=== PATIENT | female | born 1985 | race Caucasian/White ===

== ENCOUNTER → 2016-06-21 | Outpatient (CLI) | payer OTHER ==
[~2016-06-21] MED LIST: DOCU-94 PO; ONDA4TAB46 PO; PRENTAB26 PO; PSYL58.618 PO
[2016-06-21 11:14] LABS: HEMATOCRIT 31.6 % (37-47)
[2016-06-21 12:45] LABS: URINE APPEARANCE CLEAR (CLEAR); URINE BILIRUBIN NEG (NEG); URINE COLOR YELLOW; URINE EPITHELIAL CELL AUTO >30 /lpf (0-5); URINE NITRITE NEG (NEG); URINE PH 6.5 (4.5-7.5); URINE SPECIFIC GRAVITY 1.014 (1.000-1.030); UROBILINOGEN NEG (NEG)
[2016-06-21 12:54] LABS: GTGD 50 Grams
[2016-06-21 12:54] LABS: MANUAL MICROSCOPIC REQUIRED? NO; REVIEW REQ? YES
== END | disposition home or self-care (01) ==
LOC: C.LAB1850 09:58
PROVIDERS: ATTEND Obstetrics & Gynecology
DX: Z34.03 Encounter for supervision of normal first pregnancy, third trimester (principal)

== ENCOUNTER → 2016-08-22 | Outpatient (CLI) | payer OTHER | END | disposition home or self-care (01) | LOC: C.LABSPEC 11:17 | PROVIDERS: ATTEND Obstetrics & Gynecology | DX: Z34.03 Encounter for supervision of normal first pregnancy, third trimester (principal) ==

== ENCOUNTER 2016-08-30 12:12 | Inpatient (IN) | payer OTHER ==
[~2016-08-30] VITALS: Ht 177.8 cm; Wt 87.0 kg
[~2016-08-30 12:12] MED LIST changes: -PRENTAB26 PO
[2016-08-30 12:44] VITALS: Ht 177.8 cm; Wt 87.0 kg
[2016-08-30] MEDS ORDERED: PRENTAB26 PO (12:44)
[2016-08-30 13:06] LABS: HEMATOCRIT 33.1 % (37-47); MEAN CELL VOLUME 92.2 fL (80-100); MEAN CORPUSCULAR HEMOGLOBIN 31.5 pg (25-34); MEAN CORPUSCULAR HGB CONC 34.1 g/dl (32-36); MEAN PLATELET VOLUME 10.6 fL (7.4-10.4); PLATELET COUNT 224 K/uL (130-400); RED BLOOD COUNT 3.59 M/uL (4.2-5.4); WHITE BLOOD COUNT 11.03 K/uL (4.8-10.8)
[2016-08-30 13:33] LABS: BUN/CREATININE RATIO 12.8 (10-20); CALCIUM 8.9 mg/dl (8.5-10.1); CREATININE 0.58 mg/dl (0.60-1.20); POTASSIUM 3.9 mmol/L (3.5-5.1)
[2016-08-30 13:35] LABS: ALB/GLOB RATIO 0.7 (0.9-2)
[2016-08-30] MEDS ORDERED: LACTATED RINGER'S 1000ML 1,000 ML IV SCH (15:16)
[2016-08-30] MEDS ORDERED: LACTATED RINGER'S 1000ML 1,000 ML IV PRN (15:16)
[2016-08-30] MEDS: CALCIUM CARBONATE 500 MG CHEWABLE PO PRN (21:34)
[2016-08-30] MEDS ORDERED: LACTATED RINGER'S 1000ML 500 ML IV PRN (21:51)
[2016-08-30] MEDS ORDERED: OXYTOCIN 30 UNITS/500ML NSS IV PRN (22:00)
[2016-08-31] MEDS: CALCIUM CARBONATE 500 MG CHEWABLE PO PRN ×2 (01:29→06:01)
[2016-08-31] MEDS ORDERED: RANITIDINE HCL 150 MG TAB PO PRN (08:15)
[2016-08-31] MEDS ORDERED: EpHEDrine SULFATE INJ 50 MG/ML AMP ONE (08:27)
[2016-08-31] MEDS ORDERED: BUPIVACAINE 0.25% 30 ML VIAL ONE (08:27)
[2016-08-31] MEDS ORDERED: FENTANYL CITRATE INJ 50 MCG/1 ML 2 ML VIAL ONE (08:27)
[2016-08-31] MEDS ORDERED: FENTANYL 2MCG/ML ROPIV 1.25MG/ML 100ML BAG EPI ONE (08:28)
[2016-08-31] MEDS ORDERED: LACTATED RINGER'S 1000ML 500 ML IV PRN (09:34)
[2016-08-31] MEDS ORDERED: NALOXONE HCL INJ 1 MG in SODIUM CHLORIDE 0.9% 1000ML 1,000 ML IV PRN (09:34)
[2016-08-31] MEDS ORDERED: DiphenhydrAMINE HCL 50 MG/ML VIAL IV PRN (09:45)
[2016-08-31] MEDS ORDERED: EpHEDrine SULFATE INJ 50 MG/ML AMP IV PRN (09:45)
[2016-08-31] MEDS ORDERED: NALOXONE HCL INJ 0.4 MG/1 ML VIAL/CARP IV PRN (09:45)
[2016-08-31] MEDS ORDERED: NALBUPHINE HCL INJ 10 MG/ML AMP IV PRN (09:45)
[2016-08-31] MEDS ORDERED: FENTANYL 2MCG/ML ROPIV 1.25MG/ML 100ML BAG EPI PRN (09:45)
[2016-08-31] MEDS ORDERED: ONDANSETRON INJ 2 MG/ML 2 ML VIAL IV PRN (10:30)
[2016-08-31] MEDS ORDERED: DIPHTHERIA/TETANUS/PERTUSSIS 0.5 ML SYR/VIAL IM. ONE (12:15)
[2016-08-31] MEDS ORDERED: OXYCODONE/ACETAMINOPHEN 5-325 TAB PO PRN (12:15)
[2016-08-31] MEDS ORDERED: BENZOCAINE 20% AER SPR 82.5 GM CAN EXT PRN (12:15)
[2016-08-31] MEDS ORDERED: OXYTOCIN 30 UNITS/500ML NSS IV PRN (12:15)
[2016-08-31] MEDS ORDERED: SUPERCREAM 0.870 % 15GM JAR EXT PRN (12:15)
[2016-08-31] MEDS ORDERED: ACETAMINOPHEN/CODEINE 300/30MG TAB PO PRN (12:15)
[2016-08-31] MEDS ORDERED: HYDROCORTISONE ACETATE 25 MG SUPP PR PRN (12:15)
[2016-08-31] MEDS ORDERED: LANOLIN OINT EXT PRN ×2 (12:15)
[2016-08-31] MEDS ORDERED: ACETAMINOPHEN 325 MG TAB PO PRN (12:15)
--- NOTE | 2016-08-31 14:23 | Anesthesia Procedure Note ---
Anesthesia Epidural Removal Nt Date & Time August 31, 2016 at 14:23 Notes Mental Status: alert / awake / arousable, participated in evaluation Nausea / Vomiting: adequately controlled Pain: adequately controlled Airway Patency, RR, SpO2: stable & adequate BP & HR: stable & adequate Hydration State: stable & adequate Neuraxial Anesthesia: was administered Anesthetic Complications: no major complications apparent, pt satisfied with anesthetic care Epidural: removed without complications, with tip intact
[2016-08-31 15:20] VITALS: BP 129/86; PULSE 92; TEMP 37.1
[2016-08-31] MEDS: IBUPROFEN 600 MG TAB PO PRN ×3 (15:31→23:29)
--- NOTE | 2016-08-31 15:43 | DELIVERY SUMMARY ---
DATE OF OPERATION: 08/31/2016 FINDINGS: Viable male with Apgars of 8 and 9. Baby delivered spontaneously over a midline second degree laceration, nuchal cord x1 reduced on the perineum. Cord gases, cord blood samples obtained. Lacerations repaired with 4-0 and 2-0 Vicryl. ESTIMATED BLOOD LOSS: 300 mL. LABOR NOTE: The patient is a 30-year-old 1, para 0 with an EDC of 15 September presented to labor and delivery at 37 and 5/7 weeks gestational age for evaluation of elevated blood pressure. The patient had been seen in the office on 30 August for scheduled OB visit and her blood pressure was 142/92, she had no protein. Because of the elevated blood pressure, the patient was sent to labor and delivery for evaluation. Prior to the elevated blood pressure, the patient has had a benign course, blood type is B+, antibody negative, Rubella immune, hepatitis B negative. She had normal 1 hour Glucola x2 and a negative third trimester beta-strep culture. The patient was observed on labor and delivery with consistent elevated blood pressures. PIH labs were drawn, which were within normal limits. The diagnosis though of gestational hypertension at term was made and because of that induction was indicated. The patient initially had a Cabrera catheter inserted into the cervix for cervical ripening. She then had Pitocin initiated. When the Cabrera catheter was removed the patient was 3 cm dilated, 50% effaced, and -2 station. She had an artificial rupture of the membranes for a clear fluid. The patient's blood pressure remained mildly elevated. After rupture of the membranes the patient became very uncomfortable, anesthesia was consulted and an epidural was placed. The patient went on to full dilatation and began her second stage. She pushed for approximately 1 hour, during the end of the second stage marked bradycardia was noted, borderline category 3 tracing. Discussion with the patient and her about a vacuum extraction, however, the patient was able to deliver spontaneously over a midline second degree laceration. Nuchal cord x1 was reduced on the perineum and the baby was delivered with a good vigorous cry. Cord was clamped and cut. Cord gases and cord blood samples obtained. Placenta was delivered spontaneously. Inspection of the perineum showed a midline second-degree laceration, this was repaired with 4-0 and 2-0 Vicryl in a routine fashion. Estimated blood loss was 300 mL. Sponge and needle counts were correct. I attest to the content of the Intraoperative Record and any orders documented therein. Any exceptio ns are noted below.
[2016-08-31] MEDS: PRENATAL VITAMIN TAB PO SCH (16:20)
[2016-08-31 19:10] VITALS: BP 118/74; PULSE 76; TEMP 37.1
[2016-08-31] MEDS: DOCUSATE SODIUM 100 MG CAP PO SCH (19:17)
[2016-08-31 23:30] VITALS: BP 126/86; PULSE 74; TEMP 36.8
[2016-09-01 04:00] VITALS: BP 124/82; PULSE 70; TEMP 36.7
--- NOTE | 2016-09-01 07:02 | Progress Note ---
Subjective September 01, 2016. Subjective conversation w/ patient, physical exam Ambulation: ambulating normally Feeding Type: Breast Feeding Objective Vital Signs Date Time Temp Pulse Resp B/P Pulse Ox O2 Delivery O2 Flow Rate FiO2 09/01/16 04:00 36.7 70 18 124/82 Room Air 08/31/16 23:30 Room Air 08/31/16 23:30 36.8 74 18 126/86 Room Air 08/31/16 19:10 37.1 76 18 118/74 Room Air 08/31/16 15:20 Room Air 08/31/16 15:20 37.1 92 18 129/86 Room Air Physical Exam General Appearance: WELL-APPEARING, NO APPARENT DISTRESS Fundus: Firm, Non-Tender Extremities: no calf tenderness Laboratory Results Last 24 Hours Test 09/01/16 06:11 Hemoglobin 10.4 g/dL Hematocrit 31.0 % Assessment and Plan Problem List Medical Problems: (1) Nausea, vomiting, and diarrhea Status: Acute Post- Day#: 1 Continue Routine Care: - doing well - BP stable - routine care
[2016-09-01] MEDS: IBUPROFEN 600 MG TAB PO PRN ×4 (07:21→23:52)
[2016-09-01 07:31] VITALS: BP 116/64; PULSE 82; TEMP 36.9
[2016-09-01] MEDS ORDERED: PRENATAL VITAMIN TAB PO SCH (08:00)
[2016-09-01] MEDS: PRENATAL VITAMIN TAB PO SCH (08:40)
[2016-09-01] MEDS: DOCUSATE SODIUM 100 MG CAP PO SCH ×2 (08:40→20:37)
[2016-09-01] MEDS: FERROUS SULFATE 325 MG TAB PO SCH (08:40)
[2016-09-01 12:10] VITALS: BP 130/95; PULSE 65; TEMP 36.8
[2016-09-01 15:35] VITALS: BP 141/90; PULSE 80; TEMP 36.9; O2SAT 99
[2016-09-01] MEDS ORDERED: BISACODYL 5 MG TABEC PO SCH (20:00)
[2016-09-01 23:35] VITALS: BP 139/73; PULSE 64; TEMP 37
--- NOTE | 2016-09-02 07:01 | Progress Note ---
Subjective September 02, 2016. Subjective conversation w/ patient, physical exam, lab review Ambulation: ambulating normally Voiding: no voiding problems Passing Gas: Yes Diet Tolerance: Regular Diet Lochia: Small Feeding Type: Breast Feeding Pain: improves with med Comment: Patient was seen at the bedside. No acute event overnight. Review of Systems Constitutional: No fever Respiratory: No cough, No shortness of breath Cardiac: No chest pain Breast: No breast lump Abdomen: No nausea, No pain, No vomiting Female : No dysuria, No urinary frequency Denies headache Objective Vital Signs Date Time Temp Pulse Resp B/P Pulse Ox O2 Delivery O2 Flow Rate FiO2 09/01/16 23:35 Room Air 09/01/16 23:35 37.0 64 20 139/73 Room Air 09/01/16 15:35 36.9 80 80 141/90 99 Room Air 09/01/16 15:35 Room Air 09/01/16 12:10 36.8 65 18 130/95 Room Air 09/01/16 08:20 Room Air 09/01/16 07:31 36.9 82 18 116/64 Room Air Physical Exam General Appearance: WELL-APPEARING, WD/WN, NO APPARENT DISTRESS Respiratory/Chest: chest non-tender, lungs clear, normal breath sounds, no respiratory distress Cardiovascular: regular rate, rhythm Abdomen: normal bowel sounds, non tender, soft Fundus: Firm, Relation to Umbilicus (1-2cm below U) Extremities: non-tender, no pedal edema, no calf tenderness Medications Current Inpatient Medications Medications (Trade) Dose Ordered Sig/Valery Route Start Time Stop Time Status Last Admin Dose Admin Prenat Multivit/ [place]/Iron/Folic Ac ( Vitamin Tab) 1 tab DAILY PO 08/31/16 08:00 09/30/16 07:59 09/01/16 08:40 1 TAB Calcium Carbonate (Tums Chew Tab) 500 mg Q4 PRN PO 08/30/16 21:15 09/29/16 21:14 08/31/16 06:01 500 MG Ranitidine HCl (zANTac TAB) 150 mg BID PRN PO 08/31/16 08:15 09/30/16 08:14 08/31/16 09:10 150 MG Oxytocin (Pitocin IV) 30 units UD PRN IV 08/31/16 12:15 09/30/16 12:14 Benzocaine (Dermoplast Aero Spr) 1 appln PRN PRN EXT 08/31/16 12:15 09/30/16 12:14 08/31/16 15:30 82.5 APPLN Cocaine HCl (Supercream 0.870% Cr) BID PRN EXT 08/31/16 12:15 09/14/16 12:14 Hydrocortisone Acetate (Anusol Hc Supp) 25 mg BID PRN MT 08/31/16 12:15 09/30/16 12:14 Lanolin (Lanolin Oint) PRN PRN EXT 08/31/16 12:15 09/30/16 12:14 Ibuprofen (Motrin Tab) 600 mg Q4H PRN PO 08/31/16 12:15 09/30/16 12:14 09/01/16 23:52 600 MG Acetaminophen (Tylenol Tab) 650 mg Q6H PRN PO 08/31/16 12:15 09/30/16 12:14 Acetaminophen/ Codeine Phosphate (Tylenol w/ Codeine #3 Tab) 1 tab Q4H PRN PO 08/31/16 12:15 09/30/16 12:14 08/31/16 23:28 1 TAB Docusate Sodium (coLACE CAP) 100 mg BID PO 08/31/16 20:00 09/30/16 19:59 09/01/16 20:37 100 MG Ferrous Sulfate (Feosol Tab) 325 mg DAILY PO 09/01/16 08:00 10/01/16 07:59 09/01/16 08:40 325 MG Assessment and Plan Problem List Medical Problems: (1) Nausea, vomiting, and diarrhea Status: Acute Post- Day#: 2 Continue Routine Care: A/P: This is a 30 y/o female, , s/p normal vaginal delivery. She is ambulating and clinically stable to discharge. - Vital signs are reviewed and WNL (Tmax 37 ), last BP was 139/73 - Last Hgb 10.4 - Blood type B+, GBS neg, Rubella Immune - No signs of depression. - Routine care - Discussed resting, feeding, pain control, mastitis, control, follow up in 6 weeks and reasons to call sooner, if necessary. - Continue with pain medication as needed, and continue vitamins. - Encourage breast feeding and educate about breast feeding - Patient understands and keen for home. - Plan to discharge home Resident Physician Supervision Note: I interviewed and examined the patient. Discussed with Dr. Johnston and agree with findings and plan as documented in the note. Any exceptions or clarifications are listed here: [None] Documented By: Luis Alfredo Jung
--- NOTE | 2016-09-02 07:03 | Discharge Instructions ---
Discharge Instructions Date of Service September 02, 2016. Admission Reason for Admission: Blood Pressure Check Discharge Discharge Diagnosis / Problem: s/p vaginal delivery Discharge Goals Goal(s): Routine recovery after delivery Medications Continue Dispensed Medications: supercream, dermaplast, tucks, lansinoh Activity Recommendations Activity Limitations: as noted below . Instructions / Follow-Up Instructions / Follow-Up ACTIVITY RECOMMENDATIONS: * Gradual return to full activity over the next 2-3 weeks. * No lifting - nothing heavier than baby over the next 2-3 weeks. * Do not engage in vigorous exercise, sexual activity or sports until cleared by your physician. * Do not drive or operate any motorized equipment until cleared by your physician. * You may shower/bathe daily. MEDICATIONS: For discomfort or pain, you may use Acetaminophen (Tylenol), Ibuprofen (Advil), or Naproxen (Aleve) following the package directions. For constipation you may use Colace following the package directions. BREAST CARE: If you are not breast feeding: * Wear a supportive bra 24 hours a day for one to two weeks. * Avoid stimulating your breasts and nipples as much as possible during the first few weeks after delivery. * When taking a shower, have the warm water hit your back, not breasts. * When your breasts feel full, apply ice packs. Usually three to four times a day helps ease the discomfort. * Take a mild pain medication (Tylenol / Motrin) when you are uncomfortable. If breast feeding: * Use breast milk to lubricate nipples. Lansinoh cream may be used for sore nipples. You do not need to remove cream prior to breast feeding. If using a different brand of cream, check the label for directions regarding removal of cream prior to nursing. * Wear a supportive bra. * If having problems with breasts or breast feeding, call a clothing consultant or your health care provider. EPISIOTOMY CARE: After delivery, if you have an episiotomy (stitches), the following steps will ease discomfort and aid healing. * For the first 24 hours after delivery, place ice packs next to your episiotomy to help reduce swelling. * After the first 24 hour-period, sitz baths, either portable or in the tub, are suggested. A shower with a shower arm sprayed over the episiotomy may be comforting. * Elizabeth care should be done after each voiding and bowel movement. Squirt warm water from a plastic bottle over the perineum (region of the body between the anus and urinary opening) and pat dry. * Use Dermoplast to ease discomfort. Shake container. [place] directly over the episiotomy. Place a Tucks on a clean sanitary pad next to your episiotomy. SPECIAL CARE INSTRUCTIONS: When you are discharged from the hospital, it is important for you to follow the instructions listed below: * During the first week at home, you should be able to care for yourself and your baby. In addition, the usual light household activities are encouraged. * Limit your activities to the way you feel. Do not try to clean the house or move furniture. Be sensible. * If you actively engage in sports and have done so up until the time of your delivery, you may resume these activities as soon as you feel able. This may take up to one month or even longer. Use good judgment. * Continue to take your vitamins for at least six weeks after the of your baby. * Your diet need not be limited unless you were on a special diet before your delivery. Breast-feeding mothers need around 2500 calories per day and at least 64-80 ounces of fluid per day (8 to 10 glasses). * You should eat foods from the four major food groups. Crash diets or fad diets are to be avoided. Eating lean meats, fresh fruits and vegetables, low-fat dairy products, high fiber foods and a regular exercise program, will help you get back to your pre- weight without putting your health at risk. * Constipation is sometimes a problem after delivery. Take a mild laxative as needed. If breast feeding, Milk of Magnesia is acceptable to use. You may use a suppository or Fleets enema if no episiotomy. * A daily shower or tub bath is suggested. Be sure to thoroughly and gently dry the perineum. * A bloody vaginal discharge will usually continue until around four weeks post . A small amount of bleeding may continue for as long as six weeks. Vaginal discharge changes from the bright red bleeding after delivery to pink then brownish and finally yellowish-pink before becoming white and disappearing. * Bleeding may increase with activity. Your first period may come in 4-8 weeks. If you are breast feeding, your period may be delayed even longer. * [place] (sex) can begin whenever both you and your partner feel comfortable and do not have any form of genital infection. It is recommended that you wait at least six weeks for internal and external healing to occur. If you have questions, please talk to your health care practitioner. A condom should be used to prevent infection and . * Foreplay, gentle intercourse and lubrication is very important the first several times to prevent pain. A water-based lubricant such as K-Y jelly or Astroglide may be used. * If you have RH negative blood and your baby is RH positive, you will receive RHOGAM by injection prior to discharge. The nurse will give you a card to keep with you that has the date and place that you received RHOGAM after delivery. * During your care, you had a Rubella screen done to check for the presence of rubella antibodies in your blood. If your test was negative, you will receive a Rubella vaccine prior to discharge. This vaccine may cause a fever, soreness at the injection site and flu-like symptoms. If these symptoms persist, notify your health care practitioner. is not advised for one month after a Rubella vaccine. * Verbalizes understanding of car seat law as reviewed with patient nursing. * Car Seat hand-out given and reviewed with patient by nursing. * Shaken baby information reviewed with patient by nursing. Call you doctor if: * Heavy bleeding (saturating several pads an hour) or passing clots the size of your fist. * A fever >101 degrees F (38.3 degrees C) on two occasions four hours apart and /or chills. * Unusual pain in the pelvic or vaginal areas. * "Baby Blues" lasting longer than two weeks. If you have any questions or concerns, call your health care practitioner at . FOLLOW UP VISIT: * Please call the office at to schedule a 6 week examination. It is important you keep this appointment. It is important for you to make arrangements for either yearly or twice yearly check-ups thereafter. Current Hospital Diet Patient's current hospital diet: Regular OB Diet Discharge Diet Recommended Diet: Regular Diet Pending Studies Studies pending at discharge: no Medical Emergencies . Who to Call and When: Medical Emergencies: If at any time you feel your situation is an emergency, please call 911 immediately. . Non-Emergent Contact Non-Emergency issues call your: P[employer]ator Call Non-Emergent contact if: you have a fever, temperature is above 101 . . "Provider Documentation" section prepared by Estephania Johnston. . VTE Core Measure Inpt VTE Proph given/why not?: Treatment not indicated
[2016-09-02] MEDS: DOCUSATE SODIUM 100 MG CAP PO SCH (08:43)
[2016-09-02] MEDS: FERROUS SULFATE 325 MG TAB PO SCH (08:43)
[2016-09-02] MEDS: IBUPROFEN 600 MG TAB PO PRN (08:43)
[2016-09-02] MEDS: PRENATAL VITAMIN TAB PO SCH (08:44)
[2016-09-02 08:45] VITALS: BP 134/81; PULSE 75; TEMP 36.7; O2SAT 99
== END 2016-09-02 11:30 | disposition home or self-care (01) | DRG 775 ==
LOC: C.OPB 12:12 → C.LD 12:22 → C.OPB 15:19 → C.LD 15:19 → C.OBG 08-31 14:55 → EDSTATUS 09-15 12:09
PROVIDERS: ADMIT Obstetrics & Gynecology; ATTEND Obstetrics & Gynecology
PROC: 0U7C7ZZ Dilation of Cervix, Via Natural or Artificial Opening (ICD-10-PCS; principal; 2016-08-31)
PROC: 3E033VJ Introduction of Other Hormone into Peripheral Vein, Percutaneous Approach (ICD-10-PCS; principal; 2016-08-31)
PROC: 10E0XZZ Delivery of Products of Conception, External Approach (ICD-10-PCS; principal; 2016-08-31)
DX: O13.4 Gestational [pregnancy-induced] hypertension without significant proteinuria, complicating childbirth (principal); Q79.6 Ehlers-Danlos syndromes; O99.89 Other specified diseases and conditions complicating pregnancy, childbirth and the puerperium; O70.1 Second degree perineal laceration during delivery; O69.81X0 Labor and delivery complicated by cord around neck, without compression, not applicable or unspecified; O76 Abnormality in fetal heart rate and rhythm complicating labor and delivery; Z37.0 Single live birth; Z3A.37 37 weeks gestation of pregnancy

== ENCOUNTER → 2016-12-04 | Outpatient (CLI) | payer OTHER ==
[~2016-12-04] MED LIST changes: -DOCU-94 PO; -ONDA4TAB46 PO; +PRENTAB26 PO; -PSYL58.618 PO
[2016-12-06 01:22] LABS: CHLAMYDIA TRACH RNA*** NOT DETECTED (NOT DETECTED); GC (NEIS GONORRHOEAE)RNA** NOT DETECTED (NOT DETECTED)
== END | disposition home or self-care (01) ==
LOC: C.LABSPEC 12:33
PROVIDERS: ATTEND Physician Assistant
DX: Z30.430 Encounter for insertion of intrauterine contraceptive device (principal)

== ENCOUNTER → 2017-05-16 | Outpatient (CLI) | payer OTHER | END | disposition home or self-care (01) | LOC: C.LABSPEC 17:59 | PROVIDERS: ATTEND Family Medicine Adult Medicine | DX: N76.0 Acute vaginitis (principal) ==

== ENCOUNTER → 2017-07-22 | Outpatient (CLI) | payer OTHER | END | disposition home or self-care (01) | LOC: C.LABBC 09:10 | PROVIDERS: ATTEND Family Medicine Adult Medicine | DX: R63.4 Abnormal weight loss (principal) ==

== ENCOUNTER → 2017-11-17 | Outpatient (CLI) | payer OTHER | END | disposition home or self-care (01) | LOC: C.LABSPEC 16:40 | PROVIDERS: ATTEND Obstetrics & Gynecology | DX: Z34.81 Encounter for supervision of other normal pregnancy, first trimester (principal); Z3A.00 Weeks of gestation of pregnancy not specified ==

== ENCOUNTER → 2017-12-02 | Outpatient (CLI) | payer OTHER ==
[~2017-12-02] MED LIST changes: +DOXY25TA8 PO; +METR500T PO; +ONDA4TAB46 PO
[2017-12-02 13:15] LABS: BASO % 0.1 %; BASO ABS # 0.01 K/uL (0-0.2); EOS ABS # 0.07 K/uL (0-0.5); HEMATOCRIT 35.4 % (37-47); HEMOGLOBIN 12.4 g/dL (12.0-16.0); IG# 0.01 K/uL (0.00-0.02); LYMPH % 19.1 %; LYMPH ABS # 1.28 K/uL (1.2-3.4); MEAN CELL VOLUME 87.2 fL (80-100); MEAN CORPUSCULAR HEMOGLOBIN 30.5 pg (25-34); MEAN PLATELET VOLUME 11.2 fL (7.4-10.4); MONO % 6.6 %; MONO ABS # 0.44 K/uL (0.11-0.59); NEUT % 73.1 %; NEUT ABS # 4.89 K/uL (1.4-6.5); PLATELET COUNT 206 K/uL (130-400); RED CELL DISTRIBUTION WIDTH CV 11.9 % (11.5-14.5); RED CELL DISTRIBUTION WIDTH SD 38.1 fL (36.4-46.3)
== END | disposition home or self-care (01) ==
LOC: C.LAB1850 12:11
PROVIDERS: ATTEND Obstetrics & Gynecology
DX: Z01.818 Encounter for other preprocedural examination (principal)

== ENCOUNTER → 2017-12-03 | Day surgery (SDC) | payer OTHER ==
[~2017-12-03] VITALS: Ht 175.3 cm; Wt 61.4 kg
[~2017-12-03] MED LIST changes: +ATROPINE SULFATE 0.1 MG/ML 5ML SYR IV PRN; +DEXAMETHASONE SOD INJ 4 MG/ML VIAL ONE; +DOXYCYCLINE HYCLATE 100 MG CAP ONE; +DOXYCYCLINE HYCLATE 100 MG CAP PO SCH; +EpHEDrine SULFATE INJ 50 MG/ML AMP IV PRN; +FENTANYL CITRATE INJ 50 MCG/1 ML 2 ML VIAL IV PRN; +FENTANYL CITRATE INJ 50 MCG/1 ML 2 ML VIAL ONE; +KETOROLAC TROMETHAMINE 30 MG/ML VIAL IV. PRN; +KETOROLAC TROMETHAMINE 30 MG/ML VIAL ONE; +LACTATED RINGER'S 1000ML 1,000 ML IV SCH; +LIDOCAINE HCL 2% 2 ML VIAL (20MG/ML) ONE; +METHYLERGONOVINE MALEATE 0.2 MG/ML AMP ONE; +MIDAZOLAM HCL 1 MG/ML 2ML VIAL ONE; +ONDANSETRON INJ 2 MG/ML 2 ML VIAL IV PRN; +ONDANSETRON INJ 2 MG/ML 2 ML VIAL ONE; +OXYCODONE/ACETAMINOPHEN 5-325 TAB PO PRN; +PROMETHAZINE HCL INJ 25 MG in SODIUM CHLORIDE 0.9% 50ML 50 ML IV PRN; +PROPOFOL IV EMULSION 10 MG/ML 20 ML VIAL ONE; +SODIUM CHLORIDE 0.9% 1000ML 1,000 ML IV SCH
[2017-12-03 06:23] VITALS: BP 123/85; PULSE 82; TEMP 37.1; O2SAT 100; Ht 175.3 cm; Wt 61.4 kg
--- NOTE | 2017-12-03 07:02 | History & Physical Bridge Note ---
H&P Re-Evaluation Bridge Note: I have examined the patient, reviewed the History & Physical and in the interval since the performance of the History & Physical I have noted the following changes of clinical significance: No changes noted
--- NOTE | 2017-12-03 07:57 | [facility] Post Operative Brief Note ---
Immediate Operative Summary Operative Date Dec 03, 2017. Pre-Operative Diagnosis missed Post-Operative Diagnosis same Procedure(s) Performed suction D&E Surgeon Celestine Reddy DO Mapping Analyst Surgeon(s) none Estimated Blood Loss 25ml Findings Consistent with Post-Op Diagnosis No POC seen on ultrasound at end of procedure Specimens products of conception Drains None bladder drained prior to procedure 25cc Anesthesia Type General Complication(s) none Disposition Accompanied Pt To Recover: no Disposition: Recovery Room / PACU
--- NOTE | 2017-12-03 07:58 | Discharge Instructions ---
Discharge Instructions Date of Service Dec 03, 2017. Visit Reason for Visit: Missed Discharge Discharge Diagnosis / Problem: same Discharge Goals Goal(s): Therapeutic intervention Activity Recommendations Activity Limitations: per Instructions/Follow-up section Anesthesia . Post Anesthesia Instructions: If you have had General Anesthesia or IV Sedation: * Do not drive today. * Resume driving when surgeon permits. * Do not make important decisions or sign legal documents today. * Call surgeon for: 1. Temperature elevations greater than 101 degrees F. 2. Uncontrollable pain. 3. Excessive bleeding. 4. Persistent nausea and vomiting. 5. Medication intolerance (nausea, vomiting or rash). * For nausea and vomiting use only clear liquids such as: tea, soda, bouillon until nausea subsides, then gradually increase diet as tolerated. * If you have any concerns or questions, call your surgeon's office. If physician is unavailable and it is an emergency, call 911 or go to the nearest emergency room. . Instructions / Follow-Up Instructions / Follow-Up ACTIVITY RECOMMENDATIONS: * Avoid tampons, douching, hot tubs, pools, and intercourse until bleeding has stopped. * May shower as usual. * No strenuous activity for 24-48 hours. After 24-48 hours, you may do anything you feel like doing (driving and sports are okay). SPECIAL CARE INSTRUCTIONS: Special Diet: * Mild nausea may occur in the immediate post-operative period. * Take clear liquids such as tea, cola or bouillon until all nausea has subsided; you may then resume your normal diet. Special Care: * Light bleeding and vaginal spotting can last from a few days to 3-4 weeks. Call your doctor if bleeding becomes heavier than the heaviest part of your period. * Check your temperature twice a day for one week. If it goes above 100.4 degrees Fahrenheit (38.0 Celsius), notify your doctor. * Call your doctor's office for an appointment for 6 weeks after your surgery. FOLLOW-UP VISIT: Call your doctor's office for an appointment for 6 weeks after your surgery. Diet Recommendations Recommended Home Diet: resume previous diet Procedures Procedures Performed: suction D&E Pending Studies Studies pending at discharge: yes List of pending studies: pathology Medical Emergencies . Who to Call and When: Medical Emergencies: If at any time you feel your situation is an emergency, please call 911 immediately. . Non-Emergent Contact Non-Emergency issues call your: Primary Care Provider, Visual Specialist . . "Provider Documentation" section prepared by Angeline Reddy. .
--- NOTE | 2017-12-03 08:17 | DIAGNOSTIC IMAGING REPORT ---
PELVIC ULTRASOUND GUIDANCE INTRAOPERATIVE CLINICAL HISTORY: MISSED COMPARISON STUDY: Outside hospital ultrasound 11/25/2017. FINDINGS: Transabdominal scanning of the pelvis demonstrates an intrauterine gestational sac. No pole is identified on this study. Post procedure imaging demonstrates evacuation of the gestational sac. Heterogeneous endometrium persists. IMPRESSION: Ultrasound guidance provided for dilatation and evacuation. Electronically signed by: Donald Bauer M.D. 12/03/2017 8:16 AM Dictated Date/Time: 12/03/2017 8:15 AM
--- NOTE | 2017-12-03 08:20 | Anesthesiology Progress Note ---
Anesthesia Post Op Note Date & Time Dec 03, 2017 at 08:20 Vital Signs Pain Intensity: 0 Vital Signs Past 12 Hours Date Time Temp Pulse Resp B/P (MAP) Pulse Ox O2 Delivery O2 Flow Rate FiO2 12/03/17 06:23 37.1 82 16 123/85 (98) 100 Room Air Notes Mental Status: alert / awake / arousable, participated in evaluation Pt Amnestic to Procedure: Yes Nausea / Vomiting: adequately controlled Pain: adequately controlled Airway Patency, RR, SpO2: stable & adequate BP & HR: stable & adequate Hydration State: stable & adequate Anesthetic Complications: no major complications apparent
--- NOTE | 2017-12-03 08:58 | [facility] Operative Report ---
Operative Report Operative Date Dec 03, 2017. Pre-Operative Diagnosis missed Post-Operative Diagnosis same Procedure(s) Performed suction D&E Surgeon Celestine Reddy DO Foxpro Developer Surgeon(s) none Estimated Blood Loss 25ml Findings No POC seen on ultrasound at end of procedure Specimens products of conception Drains None bladder drained prior to procedure 25cc Anesthesia Type General Complication(s) none Disposition no Recovery Room / PACU Indications 32-year-old 001 at 9 weeks by last menstrual period, had missed diagnosed in the office. Last week, gestational sac measured 6 weeks 2 days with heart rate 99. Yesterday in the office, gestational sac measured 6 weeks 2 days with echogenic debris, no heart rate. The patient elected to undergo surgical dilation and evacuation. Description of Procedure The patient was seen in the preoperative holding area risks benefits and alternatives to surgery reviewed. We discussed informed consent in the office. She signed informed consent and all questions were answered. She elected to proceed with surgery. The patient was offered genetic testing of the products of conception, she declined this. She received p.o. doxycycline preoperatively, and will receive a second dose postoperatively per a [facility] antibiotic guidelines. She has received a prescription for Flagyl to take over the next 5 days. Patient was taken to the operating room, where general anesthesia was administered. She was prepared and draped in the usual sterile fashion with feet in yellowfin stirrups in the dorsal lithotomy position. The bladder was drained, a weighted speculum was placed in the vagina, cervix was visualized, anterior lip was grasped with a single-tooth tenaculum. The cervix was gently dilated to admit an 8 mm curved suction curette. Under direct ultrasound guidance, the uterus was gently curettaged, all products of conception were sent to pathology for evaluation. At the conclusion of the curettage, there was a small amount of blood in the uterine cavity, but no obvious products of conception. The patient was given 1 dose of Methergine by anesthesia. Excellent hemostasis was observed. All instruments were removed from the vagina. Sponge and instrument counts are correct 2 at the conclusion of the case, the patient was taken to recovery area in stable and good condition. I attest to the content of the Intraoperative Record and any orders documented therein. Any exceptions are noted below.
[2017-12-03 09:09] VITALS: BP 111/60; PULSE 71; TEMP 36.9; O2SAT 100
[2017-12-03 09:39] VITALS: BP 112/62; PULSE 70; TEMP 36.9; O2SAT 100
== END | disposition home or self-care (01) ==
LOC: C.ACU 06:00
PROVIDERS: ATTEND Obstetrics & Gynecology
DX: O02.1 Missed abortion (principal); Q79.6 Ehlers-Danlos syndromes; Z87.891 Personal history of nicotine dependence

== ENCOUNTER 2018-10-19 13:11 | Observation (INO) ==
[2018-10-19] MEDS ORDERED: LACTATED RINGER'S 1,000 ML IV PRN (13:51)
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
[2018-10-19 14:10] LABS: Basophils # (auto) 0.01 K/uL (0-0.2); Basophils % (auto) 0.1 %; Eosinophils # (auto) 0.17 K/uL (0-0.5); Eosinophils % (auto) 2.1 %; Hematocrit (blood only) 30.9 % (37-47); Hemoglobin 10.3 g/dL (12.0-16.0); Immature Granulocytes # (auto) 0.03 K/uL (0.00-0.02); Immature Granulocytes % (auto) 0.4 %; Lymphocytes # (auto) 1.13 K/uL (1.2-3.4); Lymphocytes % (auto) 14.3 %; Mean Corpuscular Hgb Conc 33.3 g/dL (32-36); Mean Corpuscular Volume 87.5 fL (80-100); Monocytes # (auto) 0.52 K/uL (0.11-0.59); Monocytes % (auto) 6.6 %; Neutrophils # (auto) 6.05 K/uL (1.4-6.5); Neutrophils % (auto) 76.5 %; Platelet Count 228 K/uL (130-400); RDW Coefficient of Variation 13.3 % (11.5-14.5); RDW Standard Deviation 42.7 fL (36.4-46.3); Red Blood Count 3.53 M/uL (4.2-5.4); White Blood Count 7.91 K/uL (4.8-10.8)
--- NOTE | 2018-10-20 07:38 | Obstetrical Progress Note ---
Date of Service October 20, 2018 Subjective Patient feels like ctx have significantly slowed since yesterday. They were Q 2-3 min yesterday, but overnight they slowed down. Now only feeling ctx occasionally. + movement, no vaginal bleeding, no leaking of fluid. Vitals stable. FHT Category 1 and reactive. [place] with irregular, occasional ctx. Cervix: unchanged since yesterday. No abdominal tenderness. Discussed with [place] that she does not appear to be in labor at this point, given that her contractions have spaced and her cervix is unchanged. No bleeding or abdominal tenderness and Cat1 FHT - abruption is not likely. I discussed with her that I recommend the full 24h of monitoring after the acci dent - and she will be able to be discharged at 12:15 today as long as FHT and her symptoms remain stable. She is agreeable to this. Reviewed discharge instructions, she will followup with me in office as scheduled on Friday. Results & Data Vital Signs (Past 12 Hours) Vital Signs Temp Pulse Resp BP 10/20/18 07:11 74 122/77 10/20/18 07:10 36.9 C 20 10/20/18 04:47 72 112/75 10/20/18 01:32 37.0 C 67 18 114/65 10/19/18 22:10 37.9 C H 93 H 18 122/83
[2018-10-20] MEDS ORDERED: CALCIUM CARBONATE 500 MG CHEWABLE TAB PO PRN (09:42)
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
== END 2018-10-20 12:50 | disposition home or self-care (01) ==
LOC: 4S1 13:11 → OPB 13:11 → 4S1 13:17
DX: Q79.6 Ehlers-Danlos syndromes; Z3A.37 37 weeks gestation of pregnancy; F17.200 Nicotine dependence, unspecified, uncomplicated; V43.52XA Car driver injured in collision with other type car in traffic accident, initial encounter; O13.3 Gestational [pregnancy-induced] hypertension without significant proteinuria, third trimester

== ENCOUNTER 2018-10-23 11:59 | Inpatient (IN) ==
[2018-10-23] MEDS ORDERED: OXYTOCIN 30 UNITS/500 ML BAG IV PRN ×3 (12:45→18:46)
--- NOTE | 2018-10-23 12:59 | History & Physical Report ---
Date of Service October 23, 2018 Assessment & Plan (1) Elevated blood pressure affecting in third trimester, antepartum: Patient with HTN range pressures here, and severe range pressures in office. Although not 4hr apart yet to make gestational hypertensive diagnosis official, given her severe range pressures and history of gHTN in prior , as well as currently ripe cervix with uncomfortable contractions, will go ahead and move towards delivery. Patient has reassuring status. Getting IV inserted now, then will re-examine and likely AROM. Pitocin ordered. GBS neg. Present on Admission?: Yes History of Present Illness Primary Care Provider: Karie Bellamy MD @ 38wk sent from office for severe range HTN and trace protein, both new. Patient denies [place], RUQ pain or vis changes. Allergies Allergy/AdvReac Type Severity Reaction Status Date / Time NEOPRENE Allergy Unknown CONTACT Uncoded 10/19/18 16:32 DERMATITIS Home Medications Home Medications Medication Instructions Recorded Confirmed Type vit no.[id number] 1 tab PO PM 10/19/18 10/23/18 History [ Vitamin] ranitidine HCl 150 mg PO BID 10/19/18 10/23/18 History calcium carbonate [Tums] 200 mg PO TID 10/23/18 10/23/18 History Patient History Medical History Gestational HTN (Acute) Cari-Danlos syndrome (Chronic) Clostridium difficile infection times 2; hospitalized once Migraines [place] teeth removed Surgical History History of dilatation and curettage Hx of LASIK Hx of tonsillectomy Family History Other Diabetes Hypertension Thyroid disease Social History Preferred Language: Italian Communication Ability: Effective Bi Consultant Required: No Beliefs That Will Affect Care: None marital status: Current Living Situation: Spouse Other Information That Helps Us Care for You: No Feels Safe at Home: Yes Safety Concerns: Feels Safe At This Time Smoking Status: Former smoker Hx Alcohol Use: No Hx Substance Use: No Physical Exam Constitutional: WD/WN, vitals as above Respiratory: normal respiratory effort; no respiratory distress Cardiovascular: Rate/Rhythm: regular rate and regular rhythm Extremities: no edema Gastrointestinal (Abdomen): Gravid, NT Psychiatric: A+Ox3, euthymic affect Genitourinary: Office exam 4cm/80%/-2 per Barry Results & Data Vital Signs (Past 12 Hours) Vital Signs Temp Pulse Resp BP 10/23/18 12:50 76 137/90 10/23/18 12:36 86 131/85 10/23/18 12:20 37.1 C 80 20 136/87 10/23/18 12:08 37.1 C 80 20 136/87 Monitoring External Monitor Cat 1 [place] Q5 irregular
[2018-10-23 13:05] LABS: Hematocrit (blood only) 31.4 % (37-47); Hemoglobin 10.7 g/dL (12.0-16.0); Mean Corpuscular Volume 87.7 fL (80-100); Platelet Count 227 K/uL (130-400); Red Blood Count 3.58 M/uL (4.2-5.4); White Blood Count 7.13 K/uL (4.8-10.8)
[2018-10-23 13:11] LABS: Mean Corpuscular Hgb Conc 34.1 g/dL (32-36)
--- NOTE | 2018-10-23 13:13 | Labor Progress Brief Note ---
Date of Service October 23, 2018 Physical Exam Genitourinary: Manual OB Exam: + cervical dilation 5 cm, + cervical effacement 80%, + station -2 and + amniotic fluid clear OB Exam Monitor Tracing: + category I Results & Data Vital Signs (Past 12 Hours) Vital Signs Temp Pulse Resp BP 10/23/18 13:07 87 169/102 H 10/23/18 12:50 76 137/90 10/23/18 12:36 86 131/85 10/23/18 12:20 37.1 C 80 20 136/87 10/23/18 12:08 37.1 C 80 20 136/87
[2018-10-23] MEDS: LACTATED RINGER'S 1,000 ML IV PRN ×2 (13:36→14:33)
[2018-10-23 13:38] LABS: Alanine Aminotransferase 14 U/L (12-78); Albumin Globulin Ratio 0.6 (0.9-2); Albumin Level 2.6 gm/dl (3.4-5.0); Alkaline Phosphatase 178 U/L (45-117); Aspartate Aminotransferase 14 U/L (15-37); BUN Creatinine Ratio 8.9 (10-20); Bilirubin Direct < 0.1 mg/dl (0-0.2); Bilirubin,Total 0.2 mg/dl (0.2-1); Blood Urea Nitrogen 5 mg/dl (7-18); Calcium 8.9 mg/dl (8.5-10.1); Carbon Dioxide 23 mmol/L (21-32); Chloride 107 mmol/L (98-107); Creatinine Clr Calc Pharmacy 175.5 ml/min; Est GFR (African American) 143.7; Globulin 4.1 gm/dl (2.5-4.0); Glucose 72 mg/dl (70-99); Sodium 140 mmol/L (136-145); Total Protein 6.7 gm/dl (6.4-8.2)
[2018-10-23] MEDS ORDERED: BUPIVACAINE 0.25% 30 ML VIAL ONE (13:39)
[2018-10-23] MEDS ORDERED: ePHEDrine sulfate 50 MG/ML AMP ONE (13:39)
[2018-10-23] MEDS ORDERED: fentaNYL 2MCG/ML ROPIV 1.25MG/ML 100 ML BAG EPI ONE (13:40)
[2018-10-23] MEDS: fentaNYL citrate 100 MCG/2 ML VIAL ONE ×2 (14:17→16:14)
--- NOTE | 2018-10-23 14:41 | Anesthesiology Consultation ---
Date of Service October 23, 2018 Assessment & Plan (1) Encounter for pre-operative examination: Chart Review Chart Review: Patient NOT seen in Pre Admission Testing and Acceptable Risk for Labor Epidural Consults Requested none History Height/Weight Height: 5 ft 10 in Weight: 84.822 kg Allergies Allergy/AdvReac Type Severity Reaction Status Date / Time NEOPRENE Allergy Unknown CONTACT Uncoded 10/19/18 16:32 DERMATITIS Medications Home Medications Medication Instructions Recorded Confirmed Last Taken vit no.[id number] 1 tab PO PM 10/19/18 10/23/18 10/22/18 20:00 [ Vitamin] ranitidine HCl 150 mg PO BID 10/19/18 10/23/18 10/23/18 08:00 calcium carbonate [Tums] 200 mg PO TID 10/23/18 10/23/18 10/22/18 22:00 Active Medications Generic Name Dose Route Start Last Admin Trade Name Freq PRN Reason Stop Dose Admin Oxytocin 30 units in 500 mls @ 1 mls/hr 10/23/18 12:45 10/23/18 13:36 Pitocin IV 10/25/18 12:44 0.06 units/hr .Q24H PRN 1 mls/hr Labor Induction/Augmentation Administration Protocol 0.06 UNITS/HR Lactated Ringer's 1,000 mls @ 125 mls/hr 10/23/18 12:45 10/23/18 14:33 Lr IV 10/25/18 12:44 125 mls/hr .Q8H PRN Administration L&D Protocol Protocol Past Medical History Medical History Gestational HTN (Acute) Cari-Danlos syndrome (Chronic) Clostridium difficile infection times 2; hospitalized once Migraines [place] teeth removed Past Family History Family History Other Diabetes Hypertension Thyroid disease Past Surgical History Surgical History History of dilatation and curettage Hx of LASIK Hx of tonsillectomy Social History Smoking Status: Former smoker Hx Alcohol Use: No Hx Substance Use: No substance use type: does not use Physical Exam Vital Signs Last Vital Signs Temp 37.1 C 10/23/18 12:20 Pulse 84 10/23/18 14:37 Resp 20 10/23/18 12:20 BP 133/70 10/23/18 14:37 Pulse Ox 98 10/23/18 14:37 Testing Laboratory Results 10/23/18 12:55 10/23/18 12:55
[2018-10-23] MEDS ORDERED: ONDANSETRON INJ 2 MG/ML 2 ML VIAL IV PRN (14:46)
[2018-10-23] MEDS ORDERED: NALOXONE HCL 1 MG in SODIUM CHLORIDE 0.9% 1000ML 1,000 ML IV PRN (14:46)
[2018-10-23] MEDS ORDERED: NALBUPHINE HCL INJ 10 MG/ML AMP IV PRN (14:46)
[2018-10-23] MEDS ORDERED: NALOXONE HCL 0.4 MG/1 ML VIAL/CARP IV PRN (14:46)
[2018-10-23] MEDS ORDERED: DiphenhydrAMINE HCL 50 MG/ML VIAL IV PRN (14:46)
[2018-10-23] MEDS ORDERED: fentaNYL 2MCG/ML ROPIV 1.25MG/ML 100 ML BAG EPI PRN (14:46)
[2018-10-23] MEDS ORDERED: ePHEDrine sulfate 50 MG/ML AMP IV PRN (14:46)
[2018-10-23] MEDS ORDERED: ONDANSETRON INJ 2 MG/ML 2 ML VIAL ONE (14:48)
--- NOTE | 2018-10-23 16:28 | Procedure Note ---
Vaginal Delivery Summary Date of Service October 23, 2018 Vaginal Delivery Summary PREOPERATIVE DIAGNOSES: 1. [place] intrauterine at 38wk gestation. 2. Gestational Hypertension. 3. Group B Streptococcus Neg. POSTOPERATIVE DIAGNOSES: 1. [place] intrauterine at 38wk gestation. 2. Gestational Hypertension. 3. Group B Streptococcus Neg. PROCEDURE: Spontaneous vaginal delivery and repair of Second degree laceration. SURGEON: Leonor Dsouza MD. SENIOR APPLICATION SECURITY CONSULTANT: None. ESTIMATED BLOOD LOSS: 250 mL. COMPLICATIONS: None. PLACENTA: Spontaneous and intact with a 3-vessel cord. DISPOSITION: Stable to labor and delivery. DESCRIPTION: The patient is a 33-year-old G3, P1011, who presented with elevated BP in the severe range at the office earlier today. She was diagnosed with gestational hypertension at term and counseled on induction of labor. Her cervix was already ripe, and she was very agreeable to having her water broken and pitocin started, which were done. She was given an epidural for comfort and not long after was completely dilated and ready to push. She pushed well and brought the head to in occiput-anterior position. The infant's head was allowed to deliver with contraction force and no further active pushing, with the perineum protected during this time. There was a loose nuchal x1 that was reduced at the perineum. The shoulders delivered easily with a maternal pushing effort. The left shoulder was anterior. The shoulders and body delivered without any difficulty, and the was placed on the maternal abdomen. It was vigorous and moving all extremities, and making respir atory efforts. The cord was doubly clamped by the MD and then cut by the FOB. The placenta delivered spontaneously and was noted to be intact and with a 3VC. The cervix, vagina and perineum were examined and were found to have a second degree tear which was repaired in the usual fashion using 2-0 vicryl with a crown suture to rebuild the perineal body. The fundus was firm and lochia minimal immediately after delivery.
--- NOTE | 2018-10-23 16:29 | Anesthesia Procedure Note ---
Date of Service October 23, 2018 Anesthesia Post Epidural Note Vital Signs Vital Signs: Temp Pulse Resp BP Pulse Ox 37.1 C 71 20 140/80 84 L 10/23/18 12:20 10/23/18 16:20 10/23/18 12:20 10/23/18 16:20 10/23/18 15:49 Pain Intensity Bilateral Abdomen: Pain Intensity: 0 Notes Mental Status: alert / awake / arousable Patient Amnestic to Procedure: Yes Nausea / Vomiting: adequately controlled Pain: adequately controlled Airway Patency, RR, SpO2: stable & adequate BP & HR: stable & adequate Hydration State: stable & adequate Neuraxial Anesthesia: was administered and sensory block is resolving Anesthetic Complications: no major complications apparent and Pt Satisfied with anesthetic care Epidural: Removed without complications and With tip intact
[2018-10-23] MEDS ORDERED: IBUPROFEN 600 MG TAB PO ONE (18:08)
[2018-10-23] MEDS ORDERED: ACETAMINOPHEN 325 MG TAB PO PRN (18:46)
[2018-10-23] MEDS ORDERED: SUPERCREAM 0.870% 15 GM JAR EXT PRN (18:46)
[2018-10-23] MEDS ORDERED: LACTATED RINGER'S 1,000 ML IV SCH (18:46)
[2018-10-23] MEDS ORDERED: DIPHTHERIA/TETANUS/PERTUSSIS 0.5 ML SYR/VIAL IM ONE (18:46)
[2018-10-23] MEDS ORDERED: BENZOCAINE 20% AER SPR 82.5 GM CAN EXT PRN (18:46)
[2018-10-23] MEDS ORDERED: HYDROCORTISONE ACETATE 25 MG SUPP PR PRN (18:46)
[2018-10-23] MEDS: DOCUSATE SODIUM 100 MG CAP PO SCH (20:28)
[2018-10-23] MEDS: IBUPROFEN 600 MG TAB PO PRN (23:11)
[2018-10-24] MEDS: IBUPROFEN 600 MG TAB PO PRN ×5 (04:16→21:41)
[2018-10-24 06:30] LABS: Hematocrit (blood only) 28.6 % (37-47); Hemoglobin 9.6 g/dL (12.0-16.0); Mean Corpuscular Hgb Conc 33.6 g/dL (32-36); Mean Corpuscular Volume 88.5 fL (80-100); Mean Platelet Volume 10.4 fL (7.4-10.4); Platelet Count 189 K/uL (130-400); RDW Coefficient of Variation 12.9 % (11.5-14.5); RDW Standard Deviation 41.9 fL (36.4-46.3); Red Blood Count 3.23 M/uL (4.2-5.4); White Blood Count 10.48 K/uL (4.8-10.8)
--- NOTE | 2018-10-24 06:57 | Obstetrical Progress Note ---
Date of Service October 24, 2018 Assessment & Plan (1) Gestational hypertension without significant proteinuria during in third trimester, antepartum: S/P Vaginal delivery and recovering well. gHTN seems to have resolved and BP normal today. Anemia noted but not inappropriate drop from pre delivery Hgb and patient is asymptomatic. Present on Admission?: Yes Subjective Ambulation: ambulating normally Voiding: no voiding problems Passing Gas:: Yes Diet Tolerance:: regular diet Lochia:: Small Feeding Type:: breast feeding Physical Exam Constitutional WD/WN, vitals as above Eyes PERRL, conjunctivae normal, anicteric sclerae Neck normal visual inspection Respiratory normal respiratory effort and able to speak in complete sentences; no respiratory distress and no labored breathing Cardiovascular Rate/Rhythm: regular rate and regular rhythm Extremities: no edema Chest (Breasts) Chest: normal inspection of chest Gastrointestinal (Abdomen) Inspection/Auscultation: abdomen normal to inspection Soft, postgravid Psychiatric A+Ox3, euthymic affect Genitourinary OB Exam Abdomen: + fundal height Fundus: + firm and + relation to umbilicus (fundus just below umbilicus); not tender Results & Data Vital Signs (Past 12 Hours) Vital Signs Temp Pulse Resp BP Pulse Ox 10/24/18 04:15 37.4 C 62 18 113/72 10/23/18 23:25 36.6 C 63 18 138/84 99 10/23/18 19:25 37.1 C 75 18 142/81 H 99
[2018-10-24] MEDS: DOCUSATE SODIUM 100 MG CAP PO SCH ×2 (08:20→19:34)
[2018-10-24] MEDS: PRENATAL VITAMIN 1 TAB PO SCH (08:20)
[2018-10-24] MEDS: OXYCODONE/ACETAMINOPHEN 5mg/325mg TAB PO PRN (14:10)
[2018-10-25] MEDS: IBUPROFEN 600 MG TAB PO PRN (03:21)
[2018-10-25] MEDS: OXYCODONE/ACETAMINOPHEN 5mg/325mg TAB PO PRN (07:26)
[2018-10-25] MEDS: PRENATAL VITAMIN 1 TAB PO SCH (07:28)
[2018-10-25] MEDS: DOCUSATE SODIUM 100 MG CAP PO SCH (07:28)
--- NOTE | 2018-10-25 08:55 | Obstetrical Progress Note ---
Date of Service October 25, 2018 Post day #2 patient is well with minimal bleeding no extremity pain ambulating well no depression pain well controlled Assessment & Plan (1) Gestational hypertension without significant proteinuria during in third trimester, antepartum: Blood pressures are normal today no treatment needed discharge home instructions reviewed Physical Exam Constitutional WD/WN, vitals as above Gastrointestinal (Abdomen) Inspection/Auscultation: abdomen normal to inspection Genitourinary Uterus firm nontender extremities negative Results & Data Vital Signs (Past 12 Hours) Vital Signs Temp Pulse Resp BP 10/25/18 07:20 37.0 C 72 18 134/81 10/25/18 00:30 63 16 112/68 10/24/18 23:55 37.0 C 71 18 154/89 H
== END 2018-10-25 10:50 | disposition home or self-care (01) | DRG 806 ==
LOC: OPB 11:59 → 4S1 12:00 → 4S2 19:10

== ENCOUNTER 2021-09-05 02:05 | Inpatient (IN) ==
[2021-09-05] MEDS ORDERED: OXYTOCIN 30 UNITS/500 ML BAG IV PRN ×3 (02:39→07:33)
[2021-09-05] MEDS ORDERED: LACTATED RINGER'S 1,000 ML IV PRN (02:39)
--- NOTE | 2021-09-05 03:01 | History & Physical Report ---
Date of Service September 05, 2021 Assessment & Plan (1) Elderly multigravida: (2) PROM (premature rupture of membranes): Plan: admit. hx of rapid labor so would like an epidural at this point. pit augmentation if indicated. fetus category one. anticipate . History of Present Illness Chief Complaint: rom and contractions Primary Care Provider: NO PCP Patient is a 35yowf at38 3/7 weeks who awoke this am in a puddle and continues to leak clear fluid. she has had cramping for a couple of weeks and notes starting to get more painful. no vb. +fm. Patient with ED with normal maternal echo. hx of ghtn and has been on baby asa. and Delivery Plans +COVID home test 06/08 (symptoms started on 06/05) AMA Weekly NST's @36 weeks Hx gHTN with prior Baby ASA Fob with [facility]- [place] [facility] [place] Maternal Echo scheduled 06/29/21 - WNL Cari-Danlos syndrome - maternal echo - WNL Would like 39wk elective induction due to fast labor w/ last -*09/13/21* OB Labs: Hemoglobin 11.3 g/dL (12.0-16.0) L 08/23/21 Hematocrit 33.6 % (37-47) L 08/23/21 Mean Corpuscular Volume 90.8 fL (80-100) 08/23/21 Platelet Count 281 K/uL (130-400) 08/23/21 Glucose 1 Hour 50 gm Load 105 mg/dL (<135) 06/27/21 OB Optional Labs: No Data to Display Labs Reviewed: Initial OB Labs (02/08/21) Blood Type & RH B positive Antibody Screen negative HCT/HGB 34.7/12.2 Platelets 266 Pap Test Chlamydia negative Gonorrhea negative Rubella immune RPR non reactive HBsAg non reactive HIV non reactive MCV 90.1 cfDNA low risk--SMP msafp--declines for now SMP Allergies Allergy/AdvReac Type Severity Reaction Status Date / Time NEOPRENE Allergy Unknown CONTACT Uncoded 06/25/21 10:12 DERMATITIS Home Medications Medication Instructions Recorded Confirmed Type prenat.vits,bob,[id number] 1 tab PO DAILY 08/28/20 09/03/21 History pyridoxine (vitamin B6) PO 02/05/21 09/03/21 History famotidine 20 mg tablet (Pepcid) 20 mg PO DAILY 06/25/21 09/03/21 History albuterol sulfate 90 mcg/actuation 2 puff INHALATION Q6H PRN #6.7 g 07/26/21 09/03/21 Rx aerosol inhaler (ProAir HFA) Patient History Medical History Clostridium difficile infection Cari-Danlos syndrome Gestational HTN Gestational hypertension affecting first Gestational hypertension without significant proteinuria during in third trimester, antepartum Migraines Surgical History History of dilatation and curettage Hx of LASIK Hx of tonsillectomy [place] teeth removed Family History Grandfather (Paternal) Myocardial infarction Other Diabetes Hypertension Thyroid disease Denies family history of Ovarian cancer Prostate cancer Breast cancer Colorectal cancer Social History Smoking Status: Former smoker Tobacco Type: Cigarettes Age Started Using Tobacco: 18; Age Quit Using Tobacco: 24; Cigarettes Per Day: 0.5; Second Hand Exposure: No; Do You Dip or Chew Tobacco: No; Tobacco Cessation Education Requested by Patient: No Hx Alcohol Use: No Hx Substance Use: No Preferred Language: Amharic Communication Ability: Effective Visual Impairment: Limited Hearing Ability: Normal Youth Ministry Director Required: No Beliefs That Will Affect Care: None marital status: marital status details: Daniele Meneses (38) [phone] Current Living Situation: Spouse and Family Current Living Situation Comment: lives with spouse, children, dog current occupational status: employed 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 Date GA wks Lbr Lgth wt Sex Type del Anes Place Del Prov ? Comment 08/31/16 37 7-7 M Epidural [facility] @ term 12/03/17 Aborted-Spontaneous D&E 10/23/18 38 8-3 M Epidural [facility] Dr. Dsouza TAX TECHNICIAN History noncontributory Physical Exam Constitutional: WD/WN, vitals as above Gastrointestinal (Abdomen): soft, gravid, nt Psychiatric: A+Ox3, euthymic affect Genitourinary: cx--/-2 toco--irregular efm--130s with mod variability, accels present, no decels Results & Data ([facility]) Vital Signs (Past 12 Hours) Vital Signs Temp Pulse Resp BP 09/05/21 02:22 74 145/94 H 09/05/21 02:21 37.2 C 20 09/05/21 02:20 37.2 C Coding Level of Care Code None Diagnoses Elderly multigravida O09.529 PROM (premature rupture of membranes) O42.90
[2021-09-05] MEDS ORDERED: ePHEDrine sulfate 50 MG/ML AMP ONE (03:20)
[2021-09-05] MEDS ORDERED: SODIUM CHLORIDE 0.9% INJ 10 ML VIAL ONE (03:20)
[2021-09-05] MEDS ORDERED: fentaNYL citrate 100 MCG/2 ML VIAL ONE (03:20)
[2021-09-05] MEDS ORDERED: fentaNYL 2MCG/ML ROPIVACAINE 1.25MG/ML 100 ML BAG EPI ONE (03:21)
[2021-09-05] MEDS ORDERED: BUPIVACAINE 0.25% 30 ML VIAL ONE (03:21)
[2021-09-05 03:37] LABS: Hematocrit (blood only) 31.2 % (37-47); Hemoglobin 10.5 g/dL (12.0-16.0); Mean Corpuscular Hemoglobin 30.1 pg (25-34); Mean Corpuscular Volume 89.4 fL (80-100); Mean Platelet Volume 10.7 fL (7.4-10.4); Platelet Count 260 K/uL (130-400); RDW Coefficient of Variation 12.6 % (11.5-14.5); RDW Standard Deviation 40.6 fL (36.4-46.3); Red Blood Count 3.49 M/uL (4.2-5.4)
[2021-09-05 03:38] LABS: Mean Corpuscular Hgb Conc 33.7 g/dL (32-36)
--- NOTE | 2021-09-05 03:51 | Anesthesiology Consultation ---
Date of Service September 05, 2021 Assessment & Plan (1) Encounter for pre-operative examination: Chart Review Chart Review: Acceptable Risk for Labor Epidural Consults Requested none ASA ASA2 Proposed Anesthesia Anesthesia Type: Labor Epidural Risk / Benefits Reviewed With: PT / POA / Parent / Guardian, Accepts Plan and Informed Consent Obtained History Height/Weight Height: 5 ft 10 in Weight: 89.811 kg Allergies Allergy/AdvReac Type Severity Reaction Status Date / Time NEOPRENE Allergy Unknown CONTACT Uncoded 06/25/21 10:12 DERMATITIS Medications Home Medications Medication Instructions Recorded Confirmed Last Taken prenat.vits,bob,[id number] 1 tab PO DAILY 08/28/20 09/03/21 Unknown pyridoxine (vitamin B6) PO 02/05/21 09/03/21 Unknown famotidine 20 mg tablet (Pepcid) 20 mg PO DAILY 06/25/21 09/03/21 Unknown albuterol sulfate 90 mcg/actuation 2 puff INHALATION Q6H PRN #6.7 g 07/26/21 09/03/21 Unknown aerosol inhaler (ProAir HFA) Active Medications Generic Name Dose Route Start Last Admin Trade Name Freq PRN Reason Stop Dose Admin Lactated Ringer's 1,000 mls @ 125 mls/hr 09/05/21 02:39 09/05/21 03:27 Lr IV 09/07/21 02:38 125 mls/hr .Q8H PRN Infusion L&D Protocol Protocol Past Medical History Medical History Clostridium difficile infection times 2; hospitalized once Cari-Danlos syndrome Gestational HTN Gestational hypertension affecting first Gestational hypertension without significant proteinuria during in third trimester, antepartum Migraines Exercise / Class Metabolic Activity II 4-5 Yardwork/Stairs/Walk up hill Past Family History Family History Grandfather (Paternal) Myocardial infarction Other Diabetes Hypertension Thyroid disease Denies family history of Ovarian cancer Prostate cancer Breast cancer Colorectal cancer Past Surgical History Surgical History History of dilatation and curettage Hx of LASIK Hx of tonsillectomy [place] teeth removed Past Anesthesia History No Hx of Anesthesia Complications and No Family Hx of Anesthesia Complications History of PONV No Hx of PONV and No Hx of Motion Sickness Social History Smoking Status: Former smoker Smoking cigarettes per day: 0.5 Do You Dip or Chew Tobacco: No Hx Alcohol Use: No Hx Substance Use: No substance use type: does not use Physical Exam Vital Signs Last Vital Signs Temp 99.0 F 09/05/21 02:21 Pulse 75 09/05/21 03:01 Resp 20 09/05/21 02:21 BP 134/90 09/05/21 03:01 ENMT Mouth: no dentition abnormality Thyromental Distance: > or= 3.5 Finger Breadths Mallampati Class: II Neck normal visual inspection Respiratory normal respiratory effort Auscultation: lungs clear to auscultation bilaterally Cardiovascular Rate/Rhythm: regular rate and regular rhythm Testing Laboratory Results 09/05/21 03:12
[2021-09-05 04:05] LABS: BUN Creatinine Ratio 10.7 (10-20); Bilirubin Direct 0.1 mg/dl (0-0.2); Bilirubin,Total 0.2 mg/dl (0.2-1.0); Calcium 8.4 mg/dl (8.5-10.1); Creatinine Clr Calc Pharmacy 170.5 ml/min; Est GFR (Non-African American) 120.8 ml/min; Globulin 2.9 gm/dl (2.5-4.0); Potassium 3.6 mmol/L (3.5-5.1); Total Protein 5.9 gm/dl (6.0-8.3)
[2021-09-05] MEDS ORDERED: fentaNYL 2MCG/ML ROPIVACAINE 1.25MG/ML 100 ML BAG EPI PRN (04:18)
[2021-09-05] MEDS ORDERED: ePHEDrine sulfate 50 MG/ML AMP IV PRN (04:18)
[2021-09-05] MEDS ORDERED: NALOXONE HCL 1 MG in SODIUM CHLORIDE 0.9% 1000ML 1,000 ML IV PRN (04:18)
[2021-09-05] MEDS ORDERED: diphenhydrAMINE 50 MG/ML VIAL IV PRN (04:18)
[2021-09-05] MEDS ORDERED: NALOXONE HCL 0.4 MG/1 ML VIAL/CARP IV PRN (04:18)
[2021-09-05] MEDS ORDERED: NALBUPHINE HCL INJ 10 MG/ML AMP IV PRN (04:18)
[2021-09-05] MEDS ORDERED: ONDANSETRON INJ 2 MG/ML 2 ML VIAL IV PRN (04:18)
--- NOTE | 2021-09-05 06:57 | Labor Progress Brief Note ---
Date of Service September 05, 2021 Subjective comfortable Assessment & Plan (1) PROM (premature rupture of membranes): Plan: pit started. fetus category one. anticipate . Admission and Anticipated Discharge Date Admission Date: September 05, 2021 Physical Exam Physical Exam: cx--per nursing 4.5 at 5:30 toco--q4min efm--130s with mod variability, accels present, early decels with some contractions. Results & Data ([facility]) Vital Signs (Past 12 Hours) Vital Signs Temp Pulse Resp BP Pulse Ox 09/05/21 06:53 87 99 09/05/21 06:50 63 137/87 09/05/21 06:48 82 98 09/05/21 06:43 69 97 09/05/21 06:38 61 100 09/05/21 06:35 66 131/80 09/05/21 06:33 63 100 09/05/21 06:31 74 87 L 09/05/21 06:30 37.1 C 18 09/05/21 06:28 72 100 09/05/21 06:23 66 98 09/05/21 06:20 72 138/91 09/05/21 06:18 71 100 09/05/21 06:13 71 100 09/05/21 06:08 69 100 09/05/21 06:05 68 135/84 09/05/21 06:03 69 100 09/05/21 05:59 18 09/05/21 05:58 70 100 09/05/21 05:53 70 100 09/05/21 05:50 70 137/88 09/05/21 05:48 73 99 09/05/21 05:47 83 88 L 09/05/21 05:43 73 100 09/05/21 05:38 76 99 09/05/21 05:35 68 113/72 09/05/21 05:33 67 99 09/05/21 05:30 18 09/05/21 05:28 83 98 09/05/21 05:23 73 99 09/05/21 05:20 71 122/72 09/05/21 05:18 71 99 09/05/21 05:13 79 100 09/05/21 05:12 84 87 L 09/05/21 05:08 73 99 09/05/21 05:06 76 133/80 09/05/21 05:03 70 99 05/18/22 05:00 18 09/05/21 04:58 81 99 09/05/21 04:53 76 99 09/05/21 04:48 93 H 99 09/05/21 04:43 74 100 09/05/21 04:38 78 100 09/05/21 04:35 72 128/72 09/05/21 04:33 88 100 09/05/21 04:30 76 128/76 09/05/21 04:28 37.2 C 74 98 09/05/21 04:24 77 140/88 09/05/21 04:23 81 100 09/05/21 04:22 80 133/84 09/05/21 04:20 78 137/89 09/05/21 04:18 81 140/93 100 09/05/21 04:16 80 136/88 09/05/21 04:13 82 100 09/05/21 04:12 81 142/98 H 09/05/21 04:10 87 141/96 H 09/05/21 04:08 91 H 99 09/05/21 04:03 99 H 100 09/05/21 03:58 97 H 100 09/05/21 03:53 79 100 09/05/21 03:48 74 100 09/05/21 03:01 75 134/90 09/05/21 02:22 74 145/94 H 09/05/21 02:21 37.2 C 20 09/05/21 02:20 37.2 C Coding Level of Care Code None Diagnoses PROM (premature rupture of membranes) O42.90
[2021-09-05] MEDS ORDERED: HYDROCORTISONE ACETATE 25 MG SUPP PR PRN (07:33)
[2021-09-05] MEDS ORDERED: BENZOCAINE 20% AER SPR 82.5 GM CAN EXT PRN (07:33)
[2021-09-05] MEDS ORDERED: DIPHTHERIA/TETANUS/PERTUSSIS 0.5 ML SYR/VIAL IM ONE (07:33)
[2021-09-05] MEDS ORDERED: bisacodyL 10 MG SUPP PR PRN (07:33)
[2021-09-05] MEDS ORDERED: oxyCODONE/ACETAMINOPHEN 5mg/325mg TAB PO PRN (07:33)
[2021-09-05] MEDS ORDERED: ACETAMINOPHEN 325 MG TAB PO PRN (07:33)
--- NOTE | 2021-09-05 07:33 | Delivery Summary ---
Vaginal Delivery Summary Date of Service September 05, 2021 Vaginal Delivery Summary and 2nd Degree LAC Pre-operative Diagnosis: at 38 3/7 srom labor Post-operative Diagnosis: same Procedure: epidural pit augmentation second degree laceration repair EBL: 400cc Anesthesia: epidural Procedure: The patient pushed for one contraction to deliver a viable male infant in doa position. A nuchal cord x 1 reduced. the rest of the was then delivered without difficulty. The baby was vigorous. The nose and mouth were bulb suctioned and the infant was placed in the maternal abdomen for drying and attention. Cord was clamped and cut at one minute of life. Cord blood and segment obtained. Placenta delivered spontaneous, intact with a three vessel cord. Cervix/sulci/rectum were intact. A second degree perineal laceration was repaired in the normal standard fashion. Hemostasis obtained with dilute pitocin and fundal massage. Apgars were 8/9. Mother and baby doing well at the end of the delivery. [facility] [place]aginal Delivery Charge Delivery Type Details: and 2nd Degree LAC
--- NOTE | 2021-09-05 09:21 | Anesthesia Procedure Note ---
Date of Service September 05, 2021 Anesthesia Post Epidural Note Vital Signs Vital Signs: Temp Pulse Resp BP Pulse Ox 37.1 C 74 18 154/80 H 97 09/05/21 06:30 09/05/21 09:18 09/05/21 09:05 09/05/21 09:18 09/05/21 07:13 Pain Intensity Bilateral Perineal: Pain Intensity: 8 Notes Mental Status: alert / awake / arousable Nausea / Vomiting: adequately controlled Pain: adequately controlled Airway Patency, RR, SpO2: stable & adequate BP & HR: stable & adequate Hydration State: stable & adequate Neuraxial Anesthesia: was administered and sensory block is resolving Anesthetic Complications: no major complications apparent and Pt Satisfied with anesthetic care Epidural: Removed without complications and With tip intact
[2021-09-05] MEDS: PRENATAL VITAMIN 1 TAB PO SCH (09:54)
[2021-09-05] MEDS: IBUPROFEN 600 MG TAB PO PRN ×3 (09:54→19:51)
[2021-09-05] MEDS: DOCUSATE SODIUM 100 MG CAP PO SCH ×2 (09:54→19:51)
[2021-09-06] MEDS: IBUPROFEN 600 MG TAB PO PRN ×3 (03:23→14:48)
--- NOTE | 2021-09-06 06:28 | Obstetrical Progress Note ---
Date of Service <Ren Gomes DO - Last Filed: 09/06/21 07:22> September 06, 2021 Assessment & Plan <Ren Gomes DO - Last Filed: 09/06/21 07:22> (1) Encounter for care and examination after delivery: 35 yo post day 1 from vaginal delivery, doing well. -Continue routine post care. -vital signs reviewed and WNL. (Tmax 37.2) -Blood type B+, GBS negative, Rubella immune -Encourage ambulation, monitor and control pain with Motrin, tylenol PRN, resume regular diet, monitor lochia. -encourage breast feeding. -Discussed discharge with patient. Patient will follow up with Dr. Lyn in 6 weeks. Patient will also follow up with clinic in 1 week for blood pressure check. Blood pressure has come down nicely since immediate post period, not requiring any medications at this time. <Cielo Jarquin MD, FACOG - Last Filed: 09/06/21 08:51> (1) Encounter for care and examination after delivery: Subjective <Ren Gomes DO - Last Filed: 09/06/21 07:22> Ambulation: ambulating normally Voiding: no voiding problems Passing Gas:: Yes Diet Tolerance:: regular diet Lochia:: Small Feeding Type:: breast feeding Current Pain Level(1-10): 0 Review of Systems Denies fever, chills, sweats Denies shortness of breath, difficulty breathing, chest pain, palpitations, chest pressure. Denies breast pain. Denies dysuria. Denies headache or changes in vision Physical Exam <Ren Gomes DO - Last Filed: 09/06/21 07:22> General: Alert, oriented. No acute distress. Cardiac: Regular rate and rhythm, no murmurs/rubs/gallops. Respiratory: Clear to auscultation bilaterally a/p, no wheezes/rales/rhonchi. No increased work of breathing. Symmetrical chest rise. No respiratory distress. Abdomen: Soft, nontender, nondistended. Bowel sounds present. Uterus: Uterine fundus firm, palpable 2 cm below umbilicus. Lower Extremities: No lower extremity edema or swelling. No deep calf pain. Christiano's negative bilaterally Results & Data ([facility]) <Ren Gomes DO - Last Filed: 09/06/21 07:22> Vital Signs (Past 12 Hours) Vital Signs Temp Pulse Resp BP Pulse Ox 09/06/21 03:15 36.4 C L 74 16 138/92 99 09/05/21 23:00 36.8 C 77 16 121/71 99 09/05/21 19:35 36.9 C 81 16 138/82 100 <Cielo Jarquin MD, FACOG - Last Filed: 09/06/21 08:51> Co-Signing Physician Notes Resident Physician Supervision Note: I interviewed and examined the patient. Discussed with Dr. Gomes and agree with findings and plan as documented in the note. Any exceptions or clarifications are listed here: Appointment in 1 week for BP check. Documented By: Cielo Jarquin MD, FACOG Resident Activity Tracking <Ren Gomes DO - Last Filed: 09/06/21 07:22> Resident Involvement: Resident Care Provided Care Provided: OB Delivery
[2021-09-06 07:38] LABS: Hematocrit (blood only) 28.8 % (37-47); Hemoglobin 9.8 g/dL (12.0-16.0)
[2021-09-06] MEDS: DOCUSATE SODIUM 100 MG CAP PO SCH (07:48)
[2021-09-06] MEDS: PRENATAL VITAMIN 1 TAB PO SCH (07:48)
[2021-09-06] MEDS ORDERED: bisacodyL 5 MG TABEC PO SCH (20:00)
== END 2021-09-06 19:15 | disposition home or self-care (01) | DRG 807 ==
LOC: OPB 02:05 → 4S1 02:10 → 4E2 12:03

== ENCOUNTER 2023-11-10 11:30 | Inpatient (IN) ==
[2023-11-10 12:45] LABS: Basophils # (auto) 0.02 K/uL (0.00-0.20); Basophils % (auto) 0.2 %; Eosinophils # (auto) 0.16 K/uL (0.00-0.50); Eosinophils % (auto) 1.7 %; Hematocrit (blood only) 32.2 % (37.0-47.0); Hemoglobin 10.7 g/dl (12.0-16.0); Immature Granulocytes # (auto) 0.06 K/uL (0.01-0.20); Immature Granulocytes % (auto) 0.6 %; Lymphocytes # (auto) 1.21 K/uL (1.20-3.40); Lymphocytes % (auto) 12.8 %; Mean Corpuscular Hemoglobin 30.1 pg (25.0-34.0); Mean Corpuscular Hgb Conc 33.2 g/dL (32.0-36.0); Mean Corpuscular Volume 90.7 fL (80.0-100.0); Mean Platelet Volume 10.9 fL (9.4-12.4); Monocytes # (auto) 0.53 K/uL (0.11-0.59); Monocytes % (auto) 5.6 %; Neutrophils # (auto) 7.49 K/uL (1.40-6.50); Neutrophils % (auto) 79.1 %; Platelet Count 222 K/uL (130-400); RDW Coefficient of Variation 12.2 % (11.5-14.5); RDW Standard Deviation 40.5 fL (36.4-46.3); Red Blood Count 3.55 M/uL (4.20-5.40); White Blood Count 9.47 K/ul (4.8-10.8)
[2023-11-10 12:56] LABS: Albumin Level 3.3 gm/dl (3.4-5.0); BUN Creatinine Ratio 9.8 (10-20); Bilirubin Direct 0.1 mg/dl (0-0.2); Bilirubin,Total 0.2 mg/dl (0.2-1.0); Calcium 8.8 mg/dl (8.6-10.3); Creatinine Clr Calc Pharmacy 150.6 ml/min; Est GFR (African American) 133.3 ml/min; Globulin 3.2 gm/dl (2.5-4.0); Potassium 3.9 mmol/L (3.5-5.1); Total Protein 6.5 gm/dl (6.0-8.3)
[2023-11-10 12:56] LABS: Creatinine Urine Random 35.8 mg/dl; Protein Creatinine Ratio Urine 0.2 (0-0.2); Total Protein Urine Random 6.4 mg/dl (0-11.9)
--- NOTE | 2023-11-10 14:58 | History & Physical Report ---
Date of Service November 10, 2023 Assessment & Plan (1) Encounter for induction of labor: (2) Gestational HTN: (3) 38 weeks gestation of : Plan admit, iv, labs. fhts categ 1. plan arom and pitocin. labs reviewed. patient agreeable. will allow diet now/ History of Present Illness Chief Complaint: induction of labor. gestational hypertension Primary Care Provider: Nadia Roach PA-C 38yo at 38+wks aurelia presents to L&D from office with elevated bps at term, evaluation here meeting criteria for gestational hypertension. Patient did note bernal on arrival. No rom, vb. +FM. No ctx. PNC c/b 1. Cari-Danlos syndrome, recent nl maternal echo 2. AMA 3. History of precip deliveries PNL rh pos, ri, gbs neg OBH: x 3, h/o gest htn in past pregnancies GYNH: nl paps, no stds Allergies Allergy/AdvReac Type Severity Reaction Status Date / Time NEOPRENE Allergy Unknown CONTACT Uncoded 11/10/23 10:08 DERMATITIS Home Medications Medication Instructions Recorded Confirmed Type fluticasone propionate 50 1 spray intranasal DAILY 02/10/23 11/10/23 History mcg/actuation nasal spray,suspension (Flonase Allergy Relief) vit 168-iron 27 mg-folic 1 cap PO DAILY 04/03/23 11/10/23 History acid 800 mcg-omega3 235 mg capsule (One-A-Day -1) calcium carbonate (Calcium 600) 600 mg PO DAILY 04/29/23 11/10/23 History doxylamine succinate 25 mg tablet 12.5 mg PO QID 04/29/23 11/10/23 History (Unisom (doxylamine)) iron, carbonyl 18 mg iron chewable 18 mg PO DAILY 08/27/23 11/10/23 History tablet (Ferretts Carbonyl Iron) magnesium 200 mg tablet 200 mg PO DAILY 08/27/23 11/10/23 History Patient History Medical History Change in bowel movement Family history of reaction to anesthesia History of anesthesia reaction Yeast infection Strep throat Kyphosis Clostridium difficile infection Migraines Cari-Danlos syndrome Gestational HTN Surgical History History of dilatation and curettage Hx of tonsillectomy [place] teeth removed Hx of LASIK Family History Grandfather (Paternal) Myocardial infarction Other Hypertension Thyroid disease Denies family history of Ovarian cancer Prostate cancer Breast cancer Colorectal cancer Social History Smoking Status: Never smoker Tobacco Type: Cigarettes Age Started Using Tobacco: 18; Age Quit Using Tobacco: 24; Cigarettes Per Day: 0.5; Second Hand Exposure: No; Do You Dip or Chew Tobacco: No; Hx Alcohol Use: No Hx Substance Use: No Preferred Language: Persian Communication Ability: Effective Visual Impairment: Limited Hearing Ability: Normal Tightening Machine Operator Required: No Beliefs That Will Affect Care: None marital status: marital status details: Daniele Meneses (41) [phone] Current Living Situation: Spouse Current Living Situation Comment: lives with spouse, children, 2 dogs. 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 How many Children do You have: 2 Other Information That Helps Us Care for You: No Feels Safe at Home: Yes Safety Concerns: Feels Safe At This Time Childhood Exposure to Second-Hand Smoke: No caffeine: Yes (coffee daily ) Dental Care, Regularly: Yes Physical Activity Frequency: Does not Exercise Seatbelt Use: always Sunscreen Use: Yes Assistive Devices: None Review of Systems as per Subjective / HPI Physical Exam Constitutional: WD/WN, vitals as above Respiratory: normal respiratory effort, lungs clear to auscultation Cardiovascular: Rate/Rhythm: regular rate and regular rhythm Gastrointestinal (Abdomen): soft gravid nt efw 7-8# Musculoskeletal: no edema nontender calves Neurologic: grossly normal Psychiatric: A+Ox3, euthymic affect Genitourinary: Manual OB Exam: + cervical dilation 3 cm, + cervical effacement 50% and + station -2 OB Exam Monitor Tracing: + external FHT monitor used, + external uterine monitor used (irreg), + category I and + normal FHT variability Results & Data Vital Signs (Past 12 Hours) Vital Signs Temp Pulse Resp BP 11/10/23 14:48 82 11/10/23 14:48 163/101 H 11/10/23 14:46 96 H 11/10/23 14:46 155/92 H 11/10/23 13:37 81 11/10/23 13:37 144/88 H 11/10/23 12:45 20 11/10/23 12:45 20 11/10/23 12:40 81 11/10/23 12:40 138/90 11/10/23 12:15 20 11/10/23 12:15 20 11/10/23 12:00 98.2 F 20 11/10/23 11:35 92 H 138/94 Coding Level of Care Code None Diagnoses Encounter for induction of labor Z34.90 Gestational HTN O13.9 38 weeks gestation of Z3A.38
[2023-11-10] MEDS ORDERED: LIDOCAINE 1% LOCAL 20 ML VIAL INFIL PRN (15:02)
[2023-11-10] MEDS ORDERED: OXYTOCIN 30 UNITS/NSS 30 UNITS/500 ML BAG IV PRN ×2 (15:02→21:28)
[2023-11-10] MEDS: LACTATED RINGER'S 1,000 ML IV PRN (16:09)
[2023-11-10] MEDS: OXYTOCIN 30 UNITS/NSS 30 UNITS/500 ML BAG IV PRN (16:52)
--- NOTE | 2023-11-10 17:22 | Labor Progress Brief Note ---
Date of Service November 10, 2023 Subjective ctx she was having have spaced out. Assessment & Plan (1) 38 weeks gestation of : (2) Gestational HTN: (3) Encounter for induction of labor: Plan will see how arom helps labor and pit infusing. fhts categ 1. epidural when desires. Admission and Anticipated Discharge Date Admission Date: November 10, 2023 Physical Exam Constitutional: WD/WN, vitals as above Genitourinary: Manual OB Exam: + cervical dilation 3 cm, + cervical effacement 50%, + station -2 and + amniotic fluid (arom) clear OB Exam Monitor Tracing: + external FHT monitor used, + external uterine monitor used (irreg), + category I and + normal FHT variability Results & Data Vital Signs (Past 12 Hours) Vital Signs Temp Pulse Resp BP 11/10/23 17:15 20 11/10/23 17:15 11/10/23 17:11 78 11/10/23 17:11 144/91 H 11/10/23 16:08 71 11/10/23 16:08 137/85 11/10/23 14:48 82 11/10/23 14:48 163/101 H 11/10/23 14:46 96 H 11/10/23 14:46 155/92 H 11/10/23 13:45 20 11/10/23 13:45 20 11/10/23 13:37 81 11/10/23 13:37 144/88 H 11/10/23 12:45 11/10/23 12:45 11/10/23 12:40 81 11/10/23 12:40 138/90 11/10/23 12:15 20 11/10/23 12:15 20 11/10/23 12:00 98.2 F 11/10/23 11:35 92 H 138/94 Coding Level of Care Code None Diagnoses 38 weeks gestation of Z3A.38 Gestational HTN O13.9 Encounter for induction of labor Z34.90
[2023-11-10] MEDS ORDERED: ePHEDrine sulfate 50 MG/ML AMP IV PRN (18:23)
[2023-11-10] MEDS ORDERED: NALOXONE HCL 0.4 MG/1 ML VIAL/CARP IV PRN (18:23)
[2023-11-10] MEDS ORDERED: SODIUM CHLORIDE 0.9% PF INJ 10 ML VIAL EPI PRN (18:23)
[2023-11-10] MEDS ORDERED: diphenhydrAMINE 50 MG/ML VIAL IV PRN (18:23)
[2023-11-10] MEDS ORDERED: LIDOCAINE 2% MPF LOCAL 5 ML VIAL EPI PRN (18:23)
[2023-11-10] MEDS ORDERED: NALBUPHINE HCL 5 MG in SYRINGE 0 ML IV PRN (18:23)
[2023-11-10] MEDS ORDERED: ROPIVACAINE 0.5% PF 5 MG/ML 20 ML VIAL EPI PRN (18:23)
[2023-11-10] MEDS ORDERED: ONDANSETRON INJ 2 MG/ML 2 ML VIAL IV PRN (18:23)
[2023-11-10] MEDS ORDERED: fentaNYL citrate PF 100 MCG/2 ML VIAL EPI STA (18:23)
[2023-11-10] MEDS ORDERED: NALOXONE HCL 1 MG in SODIUM CHLORIDE 0.9% 1,000 ML IV PRN (18:23)
[2023-11-10] MEDS ORDERED: BUPIVACAINE 0.25% PF 30 ML VIAL EPI STA (18:23)
[2023-11-10] MEDS ORDERED: SODIUM CHLORIDE 0.9% PF INJ 10 ML VIAL EPI STA (18:23)
--- NOTE | 2023-11-10 18:26 | Anesthesiology Consultation ---
Date of Service November 10, 2023 Assessment & Plan (1) Encounter for pre-operative examination: Chart Review Chart Review: Patient NOT seen in Pre Admission Testing and Acceptable Risk for Labor Epidural Consults Requested none History Height/Weight Height: 5 ft 10 in Weight: 87.997 kg Allergies Allergy/AdvReac Type Severity Reaction Status Date / Time NEOPRENE Allergy Unknown CONTACT Uncoded 11/10/23 10:08 DERMATITIS Medications Home Medications Medication Instructions Recorded Confirmed Last Taken fluticasone propionate 50 1 spray intranasal DAILY 02/10/23 11/10/23 11/09/23 mcg/actuation nasal spray,suspension (Flonase Allergy Relief) vit 168-iron 27 mg-folic 1 cap PO DAILY 04/03/23 11/10/23 11/09/23 acid 800 mcg-omega3 235 mg capsule (One-A-Day -1) calcium carbonate (Calcium 600) 600 mg PO DAILY 04/29/23 11/10/23 11/09/23 doxylamine succinate 25 mg tablet 12.5 mg PO QID 04/29/23 11/10/23 11/09/23 (Unisom (doxylamine)) iron, carbonyl 18 mg iron chewable 18 mg PO DAILY 08/27/23 11/10/23 11/09/23 tablet (Ferretts Carbonyl Iron) magnesium 200 mg tablet 200 mg PO DAILY 08/27/23 11/10/23 11/09/23 Active Medications Generic Name Dose Route Start Last Admin Trade Name Freq PRN Reason Stop Dose Admin Lactated Ringer's 1,000 mls @ 125 mls/hr 11/10/23 15:02 11/10/23 18:31 Lr IV 11/12/23 15:01 125 mls/hr .Q8H PRN Administration L&D Protocol Protocol Oxytocin 30 units in 500 mls @ 1 mls/hr 11/10/23 15:03 11/10/23 16:52 Pitocin 30 Units/Nss IV 11/12/23 15:02 0.06 units/hr .Q24H PRN 1 mls/hr Labor Induction/Augmentation Administration Protocol 0.06 UNITS/HR Past Medical History Medical History (Updated 11/10/23 @ 18:26 by Dennis Kerr MD) Encounter for pre-operative examination Change in bowel movement BLOODY/MUCOUS STOOLS MULTIPLE X'S PER DAY/REASON FOR UPCOMING PROCEDURE Family history of reaction to anesthesia FATHER N/V, SOMETIMES HARD TO COME OUT OF History of anesthesia reaction WITH WISDOM TEETH WOKE UP VERY DISORIENTED AND VERY SICK NO ISSUES SINCE Yeast infection RECENT AND RESOLVED/ DIFLUCAN TX COMPLETED Strep throat DX JULY 05 - CURRENT ABX FOR/HELPING Kyphosis CHRONIC Clostridium difficile infection times 2; hospitalized once Migraines Past Family History Family History Grandfather (Paternal) Myocardial infarction Other Hypertension Thyroid disease Denies family history of Ovarian cancer Prostate cancer Breast cancer Colorectal cancer Past Surgical History Surgical History History of dilatation and curettage Hx of tonsillectomy [place] teeth removed Hx of LASIK Social History Smoking Status: Never smoker tobacco type: cigarettes Smoking cigarettes per day: 0.5 Do You Dip or Chew Tobacco: No Hx Alcohol Use: No Hx Substance Use: No substance use type: does not use Physical Exam Vital Signs Last Vital Signs Temp 36.8 C 11/10/23 12:00 Pulse 89 11/10/23 18:47 Resp 20 11/10/23 17:30 BP 158/97 H 11/10/23 18:47 Pulse Ox 98 11/10/23 18:45 Testing Laboratory Results 11/10/23 12:26 11/10/23 12:26
[2023-11-10] MEDS: BUPIVACAINE 0.25% PF 30 ML VIAL EPI PRN (18:50)
[2023-11-10] MEDS: LIDOCAINE 2%/EPINEPHRINE 1:200,000 20 ML PF EPI STA (18:50)
[2023-11-10] MEDS: fentaNYL citrate PF 100 MCG/2 ML VIAL EPI PRN (18:50)
[2023-11-10] MEDS: fentANYL 2 MCG/ML BUPIVacaine 0.125%-NSS 100ML BAG EPI PRN (18:51)
[2023-11-10] MEDS ORDERED: LIDOCAINE 2%/EPINEPHRINE 1:200,000 20 ML PF ONE (19:38)
--- NOTE | 2023-11-10 21:04 | Delivery Summary ---
Vaginal Delivery Summary Date of Service November 10, 2023 Vaginal Delivery Summary and 2nd Degree LAC The patient dilated to complete and pushed to deliver a viable female infant Apgars 9 and 9 via over 2nd degree perineal laceration. Mouth and nose bulb suctioned at perineum. Loose nuchal x 2 reduced with ease. Shoulders and body delivered with ease. was vigorous and crying at . Cord clamped at approx 40 seconds of life and infant to maternal abdomen where the cord was then doubly clamped and cut. Placenta delivered spontaneously and intact, three- vessel cord. Hemostasis achieved with dilute pitocin and uterine massage and drainage of the bladder for approximately 300 cc under sterile conditions. Laceration repaired with 3-0 vicryl in typical fashion. Cervix and sulci intact. QBL 255 cc. Mother and baby stable recovery. [facility] [place] Vaginal Delivery Charge Delivery Type Details: and 2nd Degree LAC
[2023-11-10] MEDS ORDERED: NON-FORMULARY MEDICATION (Doxylamine Succinate [Unisom (Doxylamine)] 25 mg Tablet) PO SCH (21:28)
[2023-11-10] MEDS ORDERED: oxyCODONE/ACETAMINOPHEN 5mg/325mg TAB PO PRN (21:28)
[2023-11-10] MEDS ORDERED: OXYTOCIN 20 UNITS/LR 1,002 ML IV SCH (21:28)
[2023-11-10] MEDS ORDERED: HYDROCORTISONE ACETATE 25 MG SUPP PR PRN (21:28)
[2023-11-10] MEDS: OXYTOCIN 20 UNITS/LR 1,002 ML IV SCH (21:38)
[2023-11-10] MEDS: BENZOCAINE 20% SPRY 85 APPLN/85 GM CAN EXT PRN (23:18)
[2023-11-10] MEDS: IBUPROFEN 600 MG TAB PO PRN (23:18)
[2023-11-10] MEDS: DOCUSATE SODIUM 100 MG CAP PO SCH (23:19)
[2023-11-10] MEDS: ePHEDrine sulfate 50 MG/ML AMP ONE (23:31)
[2023-11-10] MEDS: SODIUM CHLORIDE 0.9% PF INJ 10 ML VIAL ONE (23:32)
[2023-11-10] MEDS: fentaNYL citrate PF 100 MCG/2 ML VIAL ONE (23:32)
[2023-11-10] MEDS: BUPIVACAINE 0.25% PF 30 ML VIAL ONE (23:32)
[2023-11-10] MEDS: DIPHTHER/TETAN/PERTUS Vaccine (Tdap, Adol/Adult) 0.5mL IM ONE (23:33)
[2023-11-10] MEDS: fentANYL 2 MCG/ML BUPIVacaine 0.125%-NSS 100ML BAG ONE (23:33)
[2023-11-10] MEDS: LIDOCAINE 2%/EPINEPHRINE 1:200,000 20 ML PF ONE (23:33)
[2023-11-11] MEDS: PRENATAL VITAMIN 1 TAB PO SCH (07:34)
--- NOTE | 2023-11-11 08:08 | Obstetrical Progress Note ---
Date of Service November 11, 2023 Assessment & Plan (1) care and examination: Plan doing well, would like to go home today. instructions reviewed. f/u 6 wk pp. stable. breast, rhpos, ri Subjective Ambulation: ambulating normally Voiding: no voiding problems Diet Tolerance:: regular diet Lochia:: Small Feeding Type:: breast feeding no concerns Constitutional: + as per Subjective / HPI Physical Exam Constitutional WD/WN, vitals as above Respiratory normal respiratory effort, lungs clear to auscultation Cardiovascular Rate/Rhythm: regular rate and regular rhythm Gastrointestinal (Abdomen) Inspection/Auscultation: abdomen normal to inspection Percussion/Palpation: abdomen soft Fundus firm 2cm down Musculoskeletal nt calves no edema Neurologic grossly normal Psychiatric A+Ox3, euthymic affect Results & Data Vital Signs (Past 12 Hours) Vital Signs Temp Pulse Pulse Resp BP BP BP 11/11/23 05:03 98.1 F 73 18 108/69 11/11/23 00:35 97.9 F 87 18 132/84 11/10/23 23:30 98.6 F 18 11/10/23 23:29 82 11/10/23 23:29 131/83 11/10/23 23:14 89 11/10/23 23:14 156/94 H 11/10/23 23:00 18 11/10/23 22:59 102 H 11/10/23 22:59 141/83 H 11/10/23 22:44 90 11/10/23 22:44 136/80 11/10/23 22:30 18 11/10/23 22:30 85 11/10/23 22:30 129/74 11/10/23 22:00 18 11/10/23 22:00 82 11/10/23 22:00 141/91 H 11/10/23 21:45 16 11/10/23 21:30 16 11/10/23 21:29 79 11/10/23 21:29 136/91 11/10/23 21:15 16 11/10/23 21:14 88 11/10/23 21:14 131/84 11/10/23 21:00 18 11/10/23 21:00 11/10/23 21:00 94 H 11/10/23 21:00 87 11/10/23 21:00 127/76 11/10/23 20:55 07/22/24 20:55 90 11/10/23 20:50 11/10/23 20:50 104 H 11/10/23 20:45 11/10/23 20:45 124 H 11/10/23 20:40 11/10/23 20:40 127 H 11/10/23 20:39 93 H 11/10/23 20:39 128/76 11/10/23 20:35 11/10/23 20:35 114 H 11/10/23 20:35 108 H 11/10/23 20:35 132/77 11/10/23 20:30 11/10/23 20:30 109 H 11/10/23 20:29 110 H 11/10/23 20:29 127/72 11/10/23 20:25 11/10/23 20:25 135 H 11/10/23 20:25 126 H 11/10/23 20:25 129/67 11/10/23 20:22 117 H 11/10/23 20:22 152/88 H 11/10/23 20:20 11/10/23 20:20 97 H 11/10/23 20:15 11/10/23 20:15 98 H 11/10/23 20:14 18 11/10/23 20:14 18 11/10/23 20:14 90 11/10/23 20:14 136/75 11/10/23 20:10 11/10/23 20:10 110 H 11/10/23 20:09 110 H 11/10/23 20:09 153/103 H 11/10/23 20:05 11/10/23 20:05 102 H Pulse Ox O2 Del Method 11/11/23 05:03 99 Room Air 11/11/23 00:35 95 Room Air 11/10/23 23:30 11/10/23 23:29 11/10/23 23:29 11/10/23 23:14 11/10/23 23:14 11/10/23 23:00 11/10/23 22:59 11/10/23 22:59 11/10/23 22:44 11/10/23 22:44 11/10/23 22:30 11/10/23 22:30 11/10/23 22:30 11/10/23 22:00 11/10/23 22:00 11/10/23 22:00 11/10/23 21:45 11/10/23 21:30 11/10/23 21:29 11/10/23 21:29 11/10/23 21:15 11/10/23 21:14 11/10/23 21:14 11/10/23 21:00 11/10/23 21:00 99 11/10/23 21:00 11/10/23 21:00 11/10/23 21:00 11/10/23 20:55 100 11/10/23 20:55 11/10/23 20:50 95 11/10/23 20:50 11/10/23 20:45 83 L 11/10/23 20:45 11/10/23 20:40 100 11/10/23 20:40 11/10/23 20:39 11/10/23 20:39 11/10/23 20:35 100 11/10/23 20:35 11/10/23 20:35 11/10/23 20:35 11/10/23 20:30 100 11/10/23 20:30 11/10/23 20:29 11/10/23 20:29 11/10/23 20:25 100 11/10/23 20:25 11/10/23 20:25 11/10/23 20:25 11/10/23 20:22 11/10/23 20:22 11/10/23 20:20 100 11/10/23 20:20 11/10/23 20:15 99 11/10/23 20:15 11/10/23 20:14 11/10/23 20:14 11/10/23 20:14 11/10/23 20:14 11/10/23 20:10 99 11/10/23 20:10 11/10/23 20:09 11/10/23 20:09 11/10/23 20:05 99 11/10/23 20:05
[2023-11-11] MEDS ORDERED: FLUTICASONE PROPIONATE NA SPR 16 GM BTL SCH (09:00)
[2023-11-11] MEDS ORDERED: NON-FORMULARY MEDICATION (Magnesium 200 mg tablet) PO SCH (09:00)
[2023-11-11] MEDS ORDERED: CALCIUM CARBONATE 1250MG TAB PO SCH (09:00)
--- NOTE | 2023-11-11 09:00 | Anesthesia Procedure Note ---
Date of Service November 11, 2023 Anesthesia Post Epidural Note Vital Signs Vital Signs: Temp Pulse Resp BP Pulse Ox O2 Del Method 98.1 F 73 18 108/69 99 Room Air 11/11/23 05:03 11/11/23 05:03 11/11/23 05:03 11/11/23 05:03 11/11/23 05:03 11/11/23 05:03 Pain Intensity Lower Abdomen: Pain Intensity: 2 Notes Mental Status: alert / awake / arousable and participated in evaluation Nausea / Vomiting: adequately controlled Pain: adequately controlled Airway Patency, RR, SpO2: stable & adequate BP & HR: stable & adequate Hydration State: stable & adequate Neuraxial Anesthesia: was administered and sensory block is resolving Anesthetic Complications: no major complications apparent and Pt Satisfied with anesthetic care Epidural: Removed without complications and With tip intact
[2023-11-11] MEDS: ACETAMINOPHEN 325 MG TAB PO PRN (10:08)
[2023-11-11] MEDS: bisacodyL 5 MG TABEC PO SCH (20:41)
== END 2023-11-11 22:30 | disposition home or self-care (01) | DRG 807 ==
LOC: OPB 11:30 → 4S1 11:31 → 4E2 11-11 00:17